=== PATIENT | female | born 1985 | race Hispanic/Latino ===

== ENCOUNTER 2024-11-26 10:04 | Emergency (ER) | payer SELFPAY ==
[~2024-11-26] VITALS: Ht 154.9 cm; Wt 64.9 kg
[~2024-11-26 10:04] MED LIST: AMOX1TAB16 PO; FERS325 PO; IBUP-2077 PO; POLY17PO4 PO
[2024-11-26 10:53] LABS: BASOPHILS # (AUTO) 0.14 K/uL (0.00-0.20); BASOPHILS % (AUTO) 1.4 % (0.0-5.0); HEMATOCRIT 40.5 % (36-48); IMMATURE GRANULOCYTE ABSOLUTE 0.04 K/uL (0-1); LYMPHOCYTES # (AUTO) 2.2 K/uL (1.0-4.8); LYMPHOCYTES % (AUTO) 22.2 % (21.0-51.0); MEAN CORPUSCULAR HEMOGLOBIN 24.1 pg (27.0-33.0); MEAN CORPUSCULAR HGB CONC 29.4 g/dL (32.0-36.0); MONOCYTES # (AUTO) 0.7 K/uL (0.1-1.0); MONOCYTES % (AUTO) 6.5 % (3.0-13.0); NEUTROPHILS # (AUTO) 6.8 K/uL (1.8-7.7); NEUTROPHILS % (AUTO) 67.5 % (40.0-77.0); PLATELET COUNT (AUTO) 257 K/uL (130-400); RED BLOOD CELL COUNT(AUTO) 4.94 MIL/uL (4.00-5.50); WHITE BLOOD COUNT (AUTO) 10.1 K/uL (4.8-10.8)
[2024-11-26 11:18] LABS: CREATININE 0.8 mg/dL (0.5-1.0); POTASSIUM 4.1 mmol/L (3.5-5.1)
--- NOTE | 2024-11-26 14:41 | HMCIMG ---
US RENAL SONOGRAM HISTORY: Right renal pain COMPARISON: 11/05/2024 TECHNIQUE: Renal and bladder ultrasound study was performed. FINDINGS: The right kidney measures 11.4 x 6.4 x 4.9 cm. The left kidney measures 10.8 x 5.1 x 5.1 cm. No evidence of hydronephrosis is seen of either kidney. Both kidneys are seen. There is right staghorn renal calculus. Right-sided stent is seen. There is right renal cyst measuring 2.9 cm. Bladder is moderately distended. There is bladder stone measuring 2 cm. IMPRESSION: 1. No hydronephrosis is seen. There is right staghorn renal calculus with right ureteral stent. Right simple renal cyst is seen measuring 2.9 cm.
--- NOTE | 2024-11-26 15:05 | ERN ---
General Chief Complaint: Post-Op Problem Stated Complaint: INCISION SITE LEAKING, NEPH RT Time Seen by MD: 10:08 Source: patient History of Present Illness Initial Comments Patient is a 39-year-old female coming in to be evaluated for right flank disc omfort. Per patient she had a nephrostomy tube placed secondary to kidney stones. She states he believes that the nephrostomy tube came out. Patient has not followed up with her urologist yet. Allergies: Coded Allergies: No Known Drug Allergies (Unverified Allergy, Unknown, 11/05/24) Home Meds Active Scripts Amoxicillin/Potassium Clav (Amox Tr-K Clv 875-125 mg Tab) 875 Mg-125 Mg Tablet, 1 TAB PO BID for 14 Days, #28 TAB 0 Refills Prov:TRISHA RUDOLPH MD 11/12/24 Reported Medications Polyethylene Glycol 3350 (Miralax) 17 Gram Powd.pack, 1 PACKET PO DAILY for constipation for 2 Days, #2 PACKET 0 Refills dissolve in water 11/06/24 Ibuprofen (Ibuprofen 800 mg Tab) 800 Mg Tab, 1 TAB PO TIDP PRN for pain 11/06/24 Ferrous Sulfate (Ferrous Sulfate) 325 Mg (65 Mg Iron) Ectab, 1 TAB PO BID 11/06/24 Past Medical History Past Medical History: Kidney Infection, Kidney Stone Past Surgical History: Female( History) LMP: Nov 10, 2024 ROS Dictation CONSTITUTIONAL: No chills, no fever, no weakness, no diaphoresis, no malaise. HEAD/FACE: No signs of trauma. EENT: No eye pain, no blurred vision, no tearing, no double vision, no ear pain, no ear discharge, no nose pain, no nasal congestion, no throat pain, no throat swelling, no mouth pain. RESPIRATORY: No cough, no orthopnea, no SOB, no stridor, no wheezing. CARDIOVASCULAR: No chest pain, no edema, no palpitations, no syncope. GASTROINTESTINAL/ABDOMINAL: No abdominal pain, no constipation, no diarrhea, no nausea, no vomiting. GENITOURINARY: No abnormal discharge, no dysuria, no frequent urination, no hematuria. No complaints of pain in the genitals. MUSCULOSKELETAL: No back pain, no gout, no joint pain, no joint swelling, no muscle pain, no muscle stiffness, no neck pain. INTEGUMENTARY: No change in color, no change in hair/nails, no dryness, no lesion, no lumps, no rash. NEUROLOGICAL/PSYCH: No anxiety, not depressed, no emotional problem, no headache, no numbness, no pre-existing deficit, no history of seizures, no tremors, no weakness. HEMATOLOGIC/LYMPHATIC: Not anemic, no history of blood clots, no apparent bleeding, no bruising, glands not swollen. All Systems Negative, Except as Noted. Physical Exam Physical Exam Dictation VITAL SIGNS: Reviewed. GENERAL APPEARANCE: Alert, oriented x3, no acute distress, obese. HEAD AND FACE: Non-traumatic. EYES: PERRL, pink conjunctivas, eyelid no trauma, anterior chamber clear. EARS: Pinnas intact and no signs of trauma or erythema. Ear canals clear and no discharge. TMs no erythema. NOSE: No discharge, no bleeding. OROPHARYNX: Mouth normal, teeth no caries, tongue pink. Pharynx clear, no erythema. Tonsils no exudates, no abscesses noted. Mucous membrane moist. NECK: Supple, non-tender, no thyromegaly, no masses, no JVD, no bruits. BREAST: Deferred. CHEST: No tenderness, no crepitus, no paradoxical movement, no retractions. LUNGS: Clear, well-ventilated, symmetric, no rales, no wheezing, no rhonchi, no stridor, good breath sounds bilaterally. HEART: Regular rate, regular rhythm, no murmur, no gallops. VASCULAR: No peripheral edema. ABDOMEN: Soft, positive bowel sounds, nondistended, no guarding, nontender, no rebound, no masses no hepatomegaly, no splenomegaly, no Gee's sign, no hernias. Nephrology tube in place right-sided RECTAL: Deferred. GENITAL: Deferred. NEUROLOGICAL: Normal speech, gross motor function intact, gross sensory function intact. MUSCULOSKELETAL: Neck nontender, full range of motion, back nontender, full range of motion. EXTREMITIES: Nontender, full range of motion. SKIN: Color pink, dry, no turgor, no rash, no lacerations, no abrasions, no contusions. LYMPHATICS: Deferred. Results Laboratory and Microbiology Lab and Micro Result Laboratory Tests Test 11/26/24 10:37 White Blood Count 10.1 K/uL (4.8-10.8) Red Blood Count 4.94 MIL/uL (4.00-5.50) Hemoglobin 11.9 g/dL (12.0-16.0) L Hematocrit 40.5 % (36-48) Mean Corpuscular Volume 82.0 fL (79-99) Mean Corpuscular Hemoglobin 24.1 pg (27.0-33.0) L Mean Corpuscular Hemoglobin Concent 29.4 g/dL (32.0-36.0) L Red Cell Distribution Width % (11.0-15.5) Platelet Count 257 K/uL (130-400) Mean Platelet Volume 9.4 fL (7.5-10.5) Immature Granulocyte % (Auto) 0.4 % (0-1) Neutrophils (%) (Auto) 67.5 % (40.0-77.0) Lymphocytes (%) (Auto) 22.2 % (21.0-51.0) Monocytes (%) (Auto) 6.5 % (3.0-13.0) Eosinophils (%) (Auto) 2.0 % (0.0-8.0) Basophils (%) (Auto) 1.4 % (0.0-5.0) Neutrophils # (Auto) 6.8 K/uL (1.8-7.7) Lymphocytes # (Auto) 2.2 K/uL (1.0-4.8) Monocytes # (Auto) 0.7 K/uL (0.1-1.0) Eosinophils # (Auto) 0.20 K/uL (0.00-0.70) Basophils # (Auto) 0.14 K/uL (0.00-0.20) Absolute Immature Granulocyte (auto 0.04 K/uL (0-1) Nucleated Red Blood Cells 0.0 % (0.0-0.19) Red Blood Cell Morphology See comments Sodium Level 136 mmol/L (136-145) Potassium Level 4.1 mmol/L (3.5-5.1) Chloride Level 102 mmol/L (101-111) Carbon Dioxide Level 29 mmol/L (21-32) Blood Urea Nitrogen 12 mg/dL (7-18) Creatinine 0.8 mg/dL (0.5-1.0) Glomerular Filtration Rate Calc 97 mL/min (>90) Random Glucose 95 mg/dL (70-105) Total Calcium 9.1 mg/dL (8.5-10.1) Labs Reviewed?: Yes EKG/XRAY/US/CT/MRI Ultrasound Comment [address] [place] [address] IMAGING REPORT Signed PATIENT: ORTIZ FOWLER MR#: [id number] : 1985 SEX: F AGE: 39 LOCATION: [facility] ORDER 1333 STATUS: REG ER REPORT#: [id number] SERVICE 1332 REASON: right renal pain ORDERING PHYSICIAN: ANA MARIA ARCE MD PROCEDURE: RENAL - US RENAL SONOGRAM US RENAL SONOGRAM HISTORY: Right renal pain COMPARISON: 11/05/2024 TECHNIQUE: Renal and bladder ultrasound study was performed. FINDINGS: The right kidney measures 11.4 x 6.4 x 4.9 cm. The left kidney measures 10.8 x 5.1 x 5.1 cm. No evidence of hydronephrosis is seen of either kidney. Both kidneys are seen. There is right staghorn renal calculus. Right-sided stent is seen. There is right renal cyst measuring 2.9 cm. Bladder is moderately distended. There is bladder stone measuring 2 cm. IMPRESSION: 1. No hydronephrosis is seen. There is right staghorn renal calculus with right ureteral stent. Right simple renal cyst is seen measuring 2.9 cm. DICTATED BY: ERYN GARCIA MD DATE: 11/26/24 1436 ELECTRONICALLY SIGNED BY: ERYN GARCIA MD DATE: 11/26/24 1441 MDM MDM: Differential diagnosis: Nephrostomy evaluation, discomfort Patient is a 39-year-old female coming in to be evaluated for right nephrostomy tube. Per patient she believes that the nephrostomy tube isn't working. Ultrasound was performed showed nephrostomy tube in place. Patient will be discharged in stable condition I did advised her appropriate follow up with the urologist in 1-2 days. ED Course Orders Procedure Category Date Status Time Cbc With Differential LAB 11/26/24 Complete 10:26 Basic Metabolic Panel LAB 11/26/24 Complete 10:26 Urinalysis LAB 11/26/24 Logged W/Microscopic 10:26 Us Renal Sonogram US 11/26/24 Resulted 13:32 Vital Signs Date Time Temp Pulse Resp B/P (MAP) Pulse Ox O2 Delivery O2 Flow Rate FiO2 11/26/24 14:30 98.2 80 16 118/74 99 Room Air* 0 21 11/26/24 13:06 80 16 99 Room Air* 0 21 11/26/24 11:53 78 16 118/74 99 Room Air* 0 21 11/26/24 10:50 98.2 80 16 116/70 98 Room Air* 0 21 11/26/24 10:06 97.9 85 16 120/83 99 Room Air 0 DX & DISP Disposition: Discharge Departure Impression: Primary Impression: H/O insertion of nephrostomy tube Condition: Stable Additional Instructions: FOLLOW-UP WITH PRIMARY CARE PROVIDER IN 1 TO 2 DAYS. TAKE MEDICATIONS DIRECTED HERE IN THE EMERGENCY ROOM. OKAY TO CONTINUE HOME MEDICATIONS UNLESS OTHERWISE DISCUSSED DURING YOUR VISIT IN THE EMERGENCY ROOM TODAY. RETURN TO YOUR NEAREST EMERGENCY ROOM IF SYMPTOMS WORSEN OR IF THERE IS NO IMPROVEMENT. CALL 911 IF YOU NEED IMMEDIATE ASSISTANCE. TAKE TYLENOL [id number] NEEDED AND IF NO CONTRAINDICATIONS ARE PRESENT. INCREASE ORAL HYDRATION. A WOUND CULTURE OR URINE CULTURE WAS ORDERED HERE IN THE EMERGENCY ROOM DEPARTMENT PLEASE FOLLOW-UP WITH PRIMARY CARE PROVIDER AND ADVISE THEM TO GET REPEAT PORTS FROM OUR FACILITY. IF YOU HAD ANY ROXIE WRAP/SPLINTS THAT WERE APPLIED HERE, PLEASE DO NOT REMOVE THEM UNTIL YOU SEE YOUR PRIMARY CARE OR SPECIALTY. Referrals: Referrals: NONE (PCP) RUBIO BRAVO MD Time of Disposition: 15:04 ANA MARIA ARCE MD Nov 26, 2024 15:05
[2024-11-26 15:11] LABS: APPEARANCE,URINE CLOUDY (CLEAR); BILIRUBIN,URINE NEGATIVE (NEGATIVE); COLOR,URINE LIGHT-YELLOW (YELLOW); GLUCOSE, URINE (UA) NEGATIVE (NEGATIVE); KETONES,URINE NEGATIVE (NEGATIVE); LEUKOCYTE ESTERASE ,URINE 500 Leu/uL (NEGATIVE); NITRATE,URINE NEGATIVE (NEGATIVE); OCCULT BLOOD,URINE SMALL (NEGATIVE); PROTEIN,URINE 20 mg/dL (NEGATIVE); UROBILINOGEN,URINE 0.2 mg/dL (0.2-1.0)
[2024-11-26 15:15] LABS: BACTERIA,URINE RARE /HPF (None Seen); MUCUS,URINE RARE LPF (None Seen); NON-SQUAMOUS EPITHELIAL CELL 1 /HPF (0-2); SQUAMOUS EPITHELIAL CELL,UR RARE /HPF (0-2); UNCLASSIFIED CRYSTAL 5 /HPF (None Seen); WBC CLUMP FEW /HPF (0-1); WBC,URINE 26-50 /HPF (0-1); YEAST,URINE BUDDING MOD /HPF (None Seen)
[2024-11-26 15:25] VITALS: BP 114/70; PULSE 80; RESP 16; TEMP 98.2; O2SAT 99
== END 2024-11-26 15:25 | disposition home or self-care (01) ==
LOC: EDH 10:04
DX: Z43.6 Encounter for attention to other artificial openings of urinary tract (principal); Z79.899 Other long term (current) drug therapy; Z98.890 Other specified postprocedural states
CPT/HCPCS: 36415; 76770; 80048; 81001; 85025; 87086; 87186; 99285

== ENCOUNTER 2024-11-28 18:35 | Inpatient (IN) | payer SELFPAY ==
[~2024-11-28] VITALS: Ht 152.4 cm; Wt 65.7 kg
--- NOTE | 2024-11-28 19:29 | ERN ---
ED Note History of Present Illness Stated Complaint: ABD PAIN Chief Complaint: Post-Op Problem Time Seen by MD: 18:37 Time Seen by Midlevel: 18:37 Dictation: The patient is a 39-year-old female with a history of kidney stones, status post nephrostomy tube on October 26, abscess drained November 08 who presents to the emergency department with complaints of right upper quadrant radiating to the back onset Thursday. Patient denies any nausea or vomiting, diarrhea or fevers. Reports last bowel movement today . Allergies: Coded Allergies: No Known Drug Allergies (Unverified Allergy, Unknown, 11/05/24) Home Meds Active Scripts Amoxicillin/Potassium Clav (Amox Tr-K Clv 875-125 mg Tab) 875 Mg-125 Mg Tablet, 1 TAB PO BID for 14 Days, #28 TAB 0 Refills Prov:TRISHA RUDOLPH MD 11/12/24 Reported Medications Polyethylene Glycol 3350 (Miralax) 17 Gram Powd.pack, 1 PACKET PO DAILY for constipation for 2 Days, #2 PACKET 0 Refills dissolve in water 11/06/24 Ibuprofen (Ibuprofen 800 mg Tab) 800 Mg Tab, 1 TAB PO TIDP PRN for pain 11/06/24 Ferrous Sulfate (Ferrous Sulfate) 325 Mg (65 Mg Iron) Ectab, 1 TAB PO BID 11/06/24 Past Medical History Past Medical History: Kidney Infection, Kidney Stone Surgical History: LMP: Nov 10, 2024 RN Note Reviewed/Agreed w/PFSH: Yes Review of System Dictation Constitutional: Negative for fever,chills, and weight loss Eyes: Negative for injury, pain,redness, and discharge ENT: Negative for injury,pain or swelling Cardiovascular: Negative for chest pain, palpitations, and edema Respiratory: Negative for shortness of breath, cough, and wheezing, Abdomen/GI: Negative for nausea, vomiting, diarrhea, and constipation positive for abdominal pain Back: Negative for injury and pain : Negative for injury, bleeding and discharge MS/Extremity: Negative for injury and deformity Skin: Negative for rash, and discoloration Neuro: Negative for headache, weakness, numbness, tingling, and seizure Psych: Negative for suicide ideation, homicidal ideation, and hallucinations Initial Vital Sign VS Vital Signs Date Time Temp Pulse Resp B/P (MAP) Pulse Ox O2 Delivery O2 Flow Rate FiO2 11/28/24 18:37 98.1 102 16 108/70 99 Room Air 0 11/28/24 20:17 21 Physical Exam Dictation Vital Signs reviewed General Appearance: Alert, oriented x 3, no acute distress, well developed, nourished. Head and Face: non-traumatic. Eyes: PERRL, pink conjunctivas, eyelid no trauma, anterior chamber with arcus senilis. Ears: Pinnas intact and no signs of trauma or erythema ear canals clear and no discharge TM no erythema Nose: No discharge, no bleeding. Oropharynx: Mouth normal, tongue pink. pharynx clear,no erythema, tonsils no exudates, no abscesses noted, mucous membrane moist Neck: Supple, non-tender, no thyromegaly, no masses, no JVD, no bruits Breast:Deferred Chest:No tenderness, no crepitus, no paradoxical movement, no retractions Lungs:Clear, well-ventilated, symmetric, no rales, no wheezing, no rhonchi, no stridor, good breath sounds bilaterally Heart: Regular rate, regular rhythm, no murmur, no gallops Vascular: no peripheral edema, Abdomen: Soft, positive bowel sounds, nondistended, no guarding, Generalized tenderness no rebound, no masses no hepatomegaly, no splenomegaly, no Gee's sign, no hernias. Rectal: Deferred Genital: Deferred Neurological: Normal speech, motor function intact, sensory function intact Musculoskeletal: Neck nontender, full range of motion, back nontender, full range of motion, Extremities: nontender, full range of motion Skin: Color pink, dry, no turgor, no rash, no lacerations, no abrasions, no contusions. Two drains to right upper abdomen and back, no abnormal drainage from drainage site, no erythema Lymphatic: Deferred Results (Laboratory/Radiology) Laboratory/Radiology Laboratory Tests Test 11/28/24 19:31 11/28/24 20:12 White Blood Count 9.7 K/uL (4.8-10.8) Red Blood Count 4.66 MIL/uL (4.00-5.50) Hemoglobin 11.4 g/dL (12.0-16.0) L Hematocrit 38.1 % (36-48) Mean Corpuscular Volume 81.8 fL (79-99) Mean Corpuscular Hemoglobin 24.5 pg (27.0-33.0) L Mean Corpuscular Hemoglobin Concent 29.9 g/dL (32.0-36.0) L Red Cell Distribution Width % (11.0-15.5) Platelet Count 256 K/uL (130-400) Mean Platelet Volume 9.3 fL (7.5-10.5) Immature Granulocyte % (Auto) 0.3 % (0-1) Neutrophils (%) (Auto) 67.3 % (40.0-77.0) Lymphocytes (%) (Auto) 22.0 % (21.0-51.0) Monocytes (%) (Auto) 7.2 % (3.0-13.0) Eosinophils (%) (Auto) 2.1 % (0.0-8.0) Basophils (%) (Auto) 1.1 % (0.0-5.0) Neutrophils # (Auto) 6.5 K/uL (1.8-7.7) Lymphocytes # (Auto) 2.1 K/uL (1.0-4.8) Monocytes # (Auto) 0.7 K/uL (0.1-1.0) Eosinophils # (Auto) 0.20 K/uL (0.00-0.70) Basophils # (Auto) 0.11 K/uL (0.00-0.20) Absolute Immature Granulocyte (auto 0.03 K/uL (0-1) Nucleated Red Blood Cells 0.0 % (0.0-0.19) Sodium Level 135 mmol/L (136-145) L Potassium Level 4.0 mmol/L (3.5-5.1) Chloride Level 101 mmol/L (101-111) Carbon Dioxide Level 32 mmol/L (21-32) Blood Urea Nitrogen 17 mg/dL (7-18) Creatinine 1.0 mg/dL (0.5-1.0) Glomerular Filtration Rate Calc 74 mL/min (>90) Random Glucose 92 mg/dL (70-105) Total Calcium 8.6 mg/dL (8.5-10.1) Total Bilirubin 0.2 mg/dL (0.2-1.0) Direct Bilirubin 0.1 mg/dL (0.0-0.3) Aspartate Amino Transf (AST/SGOT) 22 U/L (10-37) Alanine Aminotransferase (ALT/SGPT) 22 U/L (12-78) Alkaline Phosphatase 178 U/L (50-136) H Total Protein 9.7 g/dL (6.0-8.3) H Albumin 2.9 g/dL (3.5-5.0) L Lipase 30 U/L (16-77) Serum Test, Qualitative NEGATIVE (NEGATIVE) Urine Color YELLOW (YELLOW) Urine Appearance TURBID (CLEAR) Urine pH 6.0 (5.0-8.0) Urine Specific [place] 1.030 (1.001-1.031) Urine Protein 70 mg/dL (NEGATIVE) H Urine Glucose (UA) NEGATIVE mg/dL (NEGATIVE) Urine Ketones NEGATIVE mg/dL (NEGATIVE) Urine Occult Blood MODERATE (NEGATIVE) H Urine Nitrate NEGATIVE (NEGATIVE) Urine Bilirubin NEGATIVE mg/dL (NEGATIVE) Urine Urobilinogen 2.0 mg/dL (0.2-1.0) H Urine Leukocyte Esterase 500 Lin/uL (NEGATIVE) H Urine RBC 51-100 /HPF (0-1) H Urine WBC >100 /HPF (0-1) H Urine WBC Clumps (Auto) FEW /HPF (0-1) Urine Squamous Epithelial Cells RARE /HPF (0-2) Urine Other Crystals (Auto) 20 /HPF (None Seen) Urine Bacteria RARE /HPF (None Seen) Urine Yeast FEW /HPF (None Seen) REASON: right upper abd pain, right flank pain s/o nephrostomy ORDERING PHYSICIAN: DAVI COLES PROCEDURE: ABD PEL W - CT ABDOMEN/PELVIS W/CONTRAST Exam Type: CT ABDOMEN/PELVIS W/CONTRAST Clinical Information: right upper abd pain, right flank pain s/o nephrostomy Comparison: None Contrast: 100 cc's Isovue 370 IV, no complications or adverse reactions CT Dose Index (CTDI): 31.60 mGy Dose Length Product (DLP): 1740.80 total mGy-cm Findings: Left kidney is unremarkable. The right kidney shows chronic hydronephrosis with a internal double-J catheter in place as well as right renal collecting system calculus. The hydronephrosis appears chronic with perirenal stranding and significant loss of renal cortical thickness as well as severe decrease in renal excretion of contrast material. The lung bases are clear. The stomach is unremarkable. It shows no wall thickening. No gross ulceration is seen. It is not overly distended. There are no surrounding inflammatory changes. No wall lesions are identified to suggest cancer. The spleen is unremarkable. It is not enlarged. The pancreas shows normal anatomy. It is not fatty replaced. It shows no lesions. The pancreatic duct is not dilated. The gallbladder is unremarkable. It shows no cholelithiasis. The gallbladder wall is normal in thickness. There is no pericholecystic fluid. The is no acute or chronic inflammation noted. The adrenal glands are unremarkable. There is no enlargement. No lesions are noted. The liver is unremarkable. It shows no focal masses. The appendix is unremarkable. It shows no evidence of inflammation. No appendicolith is seen. The small bowel is unremarkable. There is no evidence of dilatation to suggest obstruction. No evidence of adynamic ileus is seen. There is no small bowel wall thickening to suggest enteritis. The colon is unremarkable. Left sided urinary bladder calculus is seen, ovoid in shape, measuring 25 mm. The other pelvic structures are unremarkable. The bony and vascular structures are unremarkable for the patient's age. Anterior perirenal fluid collection is seen with drainage catheter in place. IMPRESSION: Left kidney is unremarkable. The right kidney shows chronic hydronephrosis with a internal double-J catheter in place as well as right renal collecting system calculus. The hydronephrosis appears chronic with perirenal stranding and significant loss of renal cortical thickness as well as severe decrease in renal excretion of contrast material. Urinary bladder calculus. This study was performed using dose reduction techniques to include automated exposure control and/or adjustment of the mA and/or kV according to patient size. Labs Reviewed?: Yes ED Course ED Course Orders Procedure Category Date Status Time Cbc With Differential LAB 11/28/24 Complete 18:51 Urinalysis Profile LAB 11/28/24 Complete 18:51 0.9%Nacl 1000ml (Ns PHA 11/28/24 Complete 1000ml) 19:00 Lipase LAB 11/28/24 Complete 18:51 Basic Metabolic Panel LAB 11/28/24 Complete 18:51 Hepatic Function Panel LAB 11/28/24 Complete 18:51 Testing, LAB 11/28/24 Complete Serum Hcg 18:51 Morphine 4mg Syg PHA 11/28/24 Complete (Morphine 4mg Syg) 19:00 Ondansetron 4mg Inj PHA 11/28/24 Complete (Zofran 4mg Inj) 19:00 Ct Abdomen/Pelvis CT 11/28/24 Resulted W/Contrast 19:54 Iohexol (Omnipaque) PHA 11/28/24 Complete 20:22 Ceftriaxone 1g Vial PHA 11/28/24 Complete (Rocephine 1g Inj) 21:30 Current Medications Medications (Trade) Dose Ordered Sig/Karen Route PRN Reason Start Time Stop Time Status Last Admin Dose Admin Ceftriaxone Sodium (ROCEphine 1G INJ) 1 gm ONCE ONCE IVPB 11/28/24 21:30 11/28/24 21:31 DC Iohexol (Omnipaque) 75 ml STK-MED ONCE IV 11/28/24 20:22 11/28/24 20:22 DC Morphine Sulfate (morPHINE 4MG SYG) 4 mg ONCE ONCE IVP 11/28/24 19:00 11/28/24 19:01 DC 11/28/24 20:15 Ondansetron HCl (zoFRAN 4MG INJ) 4 mg ONCE ONCE IVP 11/28/24 19:00 11/28/24 19:01 DC 11/28/24 20:15 Sodium Chloride 1,000 ml @ 0 mls/hr ONCE ONCE IV 11/28/24 19:00 11/28/24 19:01 DC 11/28/24 20:15 Vital Signs Date Time Temp Pulse Resp B/P (MAP) Pulse Ox O2 Delivery O2 Flow Rate FiO2 11/28/24 20:17 98.4 101 18 104/68 98 Room Air* 0 21 11/28/24 18:37 98.1 102 16 108/70 99 Room Air 0 Medical Decision Making MDM MDM: The patient is a 39-year-old female with a history of kidney stones, status post nephrostomy tube on October 26, abscess drained November 08 who presents to the emergency department with complaints of right upper quadrant radiating to the back onset Thursday. Patient denies any nausea or vomiting, diarrhea or fevers. Reports last bowel movement today . CBC showed no leukocytosis, mild normocytic anemia, chemistry showed mild hyponatremia, negative liver enzymes, negative lipase, urinalysis positive for leukocyte esterase. CT abdomen pelvis showed a right kidney shows chronic hydronephrosis with internal double-J catheter in place. Urinary bladder calculus. Patient will be started on antibiotics and admitted for urology evaluation. Patient reports that her nephrostomy bag has not been draining appropriately. Differential diagnosis: Nephrostomy tube malfunction, sepsis, electrolyte imbalance, dehydration, UTI postoperative pain Comorbidities: Kidney stones Tests considered and not ordered secondary to shared decision making include: none Previous outside records reviewed: none Risk of complication and/or morbidity or mortality of patient management: The patient meets criteria for admission. Need for emergency major/minor surgery: No There are no social concerns with this patient. I independently interpreted the tests I ordered (labs, urinalysis, etc.). I discussed the case with the hospitalist for admission. Syeda DIAZ who accepts admission I discussed the case with the following specialists: none. Historian: pateint. I independently interpreted imaging studies and EKGs that I ordered (US, CT, XR, EKG, etc.). External chart review: none. Medical management and examination interpretation discussions were had by me with other qualified healthcare professionals as indicated for the patient's care. DX & DISP Disposition: Inpatient Decision to Admit Date: Nov 28, 2024 Decision to Admit Time: 22:05 Departure Impression: Primary Impression: Right flank pain Additional Impressions: History of nephrostomy, UTI (urinary tract infection) Condition: Stable Referrals: SELF,REFERRAL (PCP) I have reviewed the case, and I agree with, Diagnosis and Plan DAVI COLES Nov 28, 2024 19:29
[2024-11-28 19:37] LABS: BASOPHILS # (AUTO) 0.11 K/uL (0.00-0.20); BASOPHILS % (AUTO) 1.1 % (0.0-5.0); EOSINOPHILS % (AUTO) 2.1 % (0.0-8.0); HEMATOCRIT 38.1 % (36-48); IMMATURE GRANULOCYTE ABSOLUTE 0.03 K/uL (0-1); LYMPHOCYTES # (AUTO) 2.1 K/uL (1.0-4.8); MEAN CORPUSCULAR HEMOGLOBIN 24.5 pg (27.0-33.0); MEAN CORPUSCULAR HGB CONC 29.9 g/dL (32.0-36.0); MEAN CORPUSCULAR VOLUME 81.8 fL (79-99); MONOCYTES # (AUTO) 0.7 K/uL (0.1-1.0); MONOCYTES % (AUTO) 7.2 % (3.0-13.0); NEUTROPHILS # (AUTO) 6.5 K/uL (1.8-7.7); NEUTROPHILS % (AUTO) 67.3 % (40.0-77.0); PLATELET COUNT (AUTO) 256 K/uL (130-400); RED BLOOD CELL COUNT(AUTO) 4.66 MIL/uL (4.00-5.50); WHITE BLOOD COUNT (AUTO) 9.7 K/uL (4.8-10.8)
[2024-11-28 19:49] LABS: ALBUMIN 2.9 g/dL (3.5-5.0); BILIRUBIN,DIRECT 0.1 mg/dL (0.0-0.3); BILIRUBIN,TOTAL 0.2 mg/dL (0.2-1.0); TOTAL PROTEIN, SERUM 9.7 g/dL (6.0-8.3)
[2024-11-28] MEDS: ondanSETRON 4MG INJ IVP ONE (20:15)
[2024-11-28] MEDS: 0.9%NACL 1000ML 1,000 ML IV ONE (20:15)
[2024-11-28] MEDS: morPHINE 4 MG SYG IVP ONE (20:15)
[2024-11-28] MEDS ORDERED: IOHEXOL-350 75 ML VIAL IV ONE (20:22)
[2024-11-28 20:27] LABS: APPEARANCE,URINE TURBID (CLEAR); BILIRUBIN,URINE NEGATIVE (NEGATIVE); COLOR,URINE YELLOW (YELLOW); GLUCOSE, URINE (UA) NEGATIVE (NEGATIVE); KETONES,URINE NEGATIVE (NEGATIVE); LEUKOCYTE ESTERASE ,URINE 500 Leu/uL (NEGATIVE); NITRATE,URINE NEGATIVE (NEGATIVE); OCCULT BLOOD,URINE MODERATE (NEGATIVE); PROTEIN,URINE 70 mg/dL (NEGATIVE)
[2024-11-28 20:28] LABS: ADD UA MICROSCOPIC YES
[2024-11-28 20:32] LABS: BACTERIA,URINE RARE /HPF (None Seen); MUCUS,URINE RARE LPF (None Seen); RBC,URINE 51-100 /HPF (0-1); SQUAMOUS EPITHELIAL CELL,UR RARE /HPF (0-2); UNCLASSIFIED CRYSTAL 20 /HPF (None Seen); WBC CLUMP FEW /HPF (0-1); WBC,URINE >100 /HPF (0-1); YEAST,URINE BUDDING FEW /HPF (None Seen)
--- NOTE | 2024-11-28 21:09 | HMCIMG ---
Exam Type: CT ABDOMEN/PELVIS W/CONTRAST Clinical Information: right upper abd pain, right flank pain s/o nephrostomy Comparison: None Contrast: 100 cc's Isovue 370 IV, no complications or adverse reactions CT Dose Index (CTDI): 31.60 mGy Dose Length Product (DLP): 1740.80 total mGy-cm Findings: Left kidney is unremarkable. The right kidney shows chronic hydronephrosis with a internal double-J catheter in place as well as right renal collecting system calculus. The hydronephrosis appears chronic with perirenal stranding and significant loss of renal cortical thickness as well as severe decrease in renal excretion of contrast material. The lung bases are clear. The stomach is unremarkable. It shows no wall thickening. No gross ulceration is seen. It is not overly distended. There are no surrounding inflammatory changes. No wall lesions are identified to suggest cancer. The spleen is unremarkable. It is not enlarged. The pancreas shows normal anatomy. It is not fatty replaced. It shows no lesions. The pancreatic duct is not dilated. The gallbladder is unremarkable. It shows no cholelithiasis. The gallbladder wall is normal in thickness. There is no pericholecystic fluid. The is no acute or chronic inflammation noted. The adrenal glands are unremarkable. There is no enlargement. No lesions are noted. The liver is unremarkable. It shows no focal masses. The appendix is unremarkable. It shows no evidence of inflammation. No appendicolith is seen. The small bowel is unremarkable. There is no evidence of dilatation to suggest obstruction. No evidence of adynamic ileus is seen. There is no small bowel wall thickening to suggest enteritis. The colon is unremarkable. Left sided urinary bladder calculus is seen, ovoid in shape, measuring 25 mm. The other pelvic structures are unremarkable. The bony and vascular structures are unremarkable for the patient's age. Anterior perirenal fluid collection is seen with drainage catheter in place. IMPRESSION: Left kidney is unremarkable. The right kidney shows chronic hydronephrosis with a internal double-J catheter in place as well as right renal collecting system calculus. The hydronephrosis appears chronic with perirenal stranding and significant loss of renal cortical thickness as well as severe decrease in renal excretion of contrast material. Urinary bladder calculus. This study was performed using dose reduction techniques to include automated exposure control and/or adjustment of the mA and/or kV according to patient size.
[2024-11-28] MEDS: cefTRIAXone 1G VIAL IVPB ONE (22:07)
[2024-11-28] MEDS ORDERED: acetaMINOPHEN 325 MG TAB PO PRN ×2 (22:30)
[2024-11-28] MEDS ORDERED: ondanSETRON 4MG INJ IV PRN (22:30)
--- NOTE | 2024-11-28 22:33 | HP ---
[facility] HISTORY AND PHYSICAL Date of Service: Nov 28, 2024 Time of Service: 22:33 PCP: Self-referral HISTORY OF PRESENT ILLNESS: This is a 39-year-old female with significant history of kidney stone (with a right nephrostomy tube placed on October 26 2024t [facility] and right percutaneous drain placed on 11/08/2024 in this facility by IR) who presents to the ED for complaints of intractable right flank pain.Patient reports her right nephrostomy tube has not been draining at all since she was admitted here and her Urologist and rounding MD's were aware if it and she had also a percutaneous drain for abscess that was placed by Interventional Radiologist on 11/08/2024 and it has been draining 30ml per day she said and patients also states she has been voiding normally everyday she said. Patient also reports she was recently seen in the ER on November 26, 2024 for similar com plaints and was sent home and advised to continue home antibiotic.Today patient came back due to severity of pain . Patient reports her last antibiotic taken was this morning she is on Augmentin 875mg bid po and she has 1 more day remaining she said. Patient seen and examined in the ER awake alert coherent and ambulatory. Patient appears comfortable. Patient denies fever, chills, chest pain, palpitation, shortness of breath and dysuria. Latest vital signs temperature 98.4, heart rate 101, blood pressure 104/68 saturation 98% on room air. Labs: Hemoglobin 11.4, hematocrit 38, platelet count 256. Sodium 135, alkaline phosphatase 178, total protein 9.7, albumin 2.9 serum test negative. Urinalysis consistent with urinary tract infection. CT abdomen and pelvis with contrast result revealed left kidney is unremarkable. Right kidney shows chronic hydronephrosis with an internal double-J catheter in place as well as right renal collecting system calculus. The hydronephrosis appears chronic with perirenal stranding and significant loss of renal cortical thickness as well as severe decrease in renal excretion of contrast material. Urinary bladder calculus. ER called and recommended to admit the patient. REVIEW OF SYSTEMS CONSTITUTIONAL: Denies fevers, chills, or night sweats. No unintentional weight loss reported. NEUROLOGICAL: Denies headache, amaurosis fugax, motor weakness, sensory deficit, vertigo/spinning sensation, gait abnormalities, or tremors. ENT: No hearing loss, otalgia, otorrhea, rhinitis, rhinorrhea, hoarseness, or sore throat. CARDIOVASCULAR: Denies any exertional angina, dyspnea on exertion, orthopnea, paroxysmal nocturnal dyspnea, palpitations, life-threatening arrhythmias, claudication. PULMONARY: Denies any shortness of breath, cough, phlegm/sputum, hemoptysis, pleuritic chest pain. SLEEP: Denies morning headaches, daytime somnolence or napping. Denies difficulty falling asleep, staying asleep, waking from sleep. Denies knowledge of snoring. GASTROINTESTINAL: Denies any type of dysphagia to either liquids or solids. Denies nausea, vomiting, pyrosis, early satiety, abdominal pain, diarrhea, constipation, or changes in stool consistency or caliber. Denies coffee-ground emesis, hematemesis, hematochezia, or melanotic stools. GENITOURINARY: Complain of right flank pain Denies frequency, urgency, nocturia, hematuria or incontinence (Storage/Irritative symptoms.) Low urinary stream, straining to void, urinary intermittency or hesitancy, splitting of the voiding stream, terminal dribbling. ENDOCRINOLOGIC: Denies polyuria, polydipsia, polyphagia or heat/cold intolerances. HEMATOLOGIC: Denies thrombophilia/previous clots, or coagulopathy/bleeding disorders. ONCOLOGIC: Denies personal history of malignancy. DERMATOLOGIC: Denies rashes or pruritus. PSYCHIATRIC: Denies any suicidal or homicidal ideation. Denies hallucinations. PAST MEDICAL HISTORY: [ kidney stone ] PAST SURGICAL HISTORY: [ with recent placement of right nephrostomy tube on 10/27/2024 and ureteral stent. Right percutaneous drain placement on 11/08/2024 ] PAST SOCIAL HISTORY: [ Patient lives with children. Patient denies alcohol tobacco and recreational drug use ] FAMILY HISTORY: [Noncontributory ] Coded Allergies: No Known Drug Allergies (Unverified Allergy, Unknown, 11/05/24) PHYSICAL EXAM GENERAL APPEARANCE: The patient is awake, alert, and oriented, in no acute cardiopulmonary distress. NEUROLOGICAL: Cranial nerves II-XII grossly intact. Motor is 5/5 in bilateral upper and lower extremities proximal to distal. No sensory deficits. HEENT: Face is symmetric. Pupils are equal and reactive. Extraocular movements are intact. NECK: Supple. No JVD. No thyromegaly. No submental, submandibular, pre- /postauricular, occipital or supraclavicular lymphadenopathy. CHEST: Normal chest expansion. No Telemetry. LUNGS: Absence of any rales, rhonchi or any wheezing. CARDIOVASCULAR: Regular. S1 and S2 normal. No appreciable rubs, murmurs or gallops. ABDOMEN: Soft, nontender, and nondistended. There is no rebound, voluntary guarding, or rigidity. : Deferred. Patient has right nephrostomy tube that is not draining. Patient also has right percutaneous drain for abscess EXTREMITIES: Non-edematous and not cyanotic. No clubbing. Good capillary refill. SKIN: No skin breakdown. Vital Sign (Last 24 Hours) 11/28/24 20:17 Temp 98.4 Pulse 101 Resp 18 B/P (MAP) 104/68 Pulse Ox 98 O2 Delivery Room Air* O2 Flow Rate 0 FiO2 21 LABS: Laboratory: Test 11/28/24 20:12 11/28/24 19:31 Range/Units Urine Color YELLOW YELLOW Urine Appearance TURBID CLEAR Urine pH 6.0 5.0-8.0 Urine Specific Bearden 1.030 1.001-1.031 Urine Protein 70 H NEGATIVE mg/dL Urine Glucose (UA) NEGATIVE NEGATIVE mg/dL Urine Ketones NEGATIVE NEGATIVE mg/dL Urine Occult Blood MODERATE H NEGATIVE Urine Nitrate NEGATIVE NEGATIVE Urine Bilirubin NEGATIVE NEGATIVE mg/dL Urine Urobilinogen 2.0 H 0.2-1.0 mg/dL Urine Leukocyte Esterase 500 H NEGATIVE Lin/uL Urine RBC 51-100 H 0-1 /HPF Urine WBC >100 H 0-1 /HPF Urine WBC Clumps (Auto) FEW 0-1 /HPF Urine Squamous Epithelial Cells RARE 0-2 /HPF Urine Other Crystals (Auto) 20 None Seen /HPF Urine Bacteria RARE None Seen /HPF Urine Yeast FEW None Seen /HPF White Blood Count 9.7 4.8-10.8 K/uL Red Blood Count 4.66 4.00-5.50 MIL/uL Hemoglobin 11.4 L 12.0-16.0 g/dL Hematocrit 38.1 36-48 % Mean Corpuscular Volume 81.8 79-99 fL Mean Corpuscular Hemoglobin 24.5 L 27.0-33.0 pg Mean Corpuscular Hemoglobin Concent 29.9 L 32.0-36.0 g/dL Red Cell Distribution Width 11.0-15.5 % Platelet Count 256 130-400 K/uL Mean Platelet Volume 9.3 7.5-10.5 fL Immature Granulocyte % (Auto) 0.3 0-1 % Neutrophils (%) (Auto) 67.3 40.0-77.0 % Lymphocytes (%) (Auto) 22.0 21.0-51.0 % Monocytes (%) (Auto) 7.2 3.0-13.0 % Eosinophils (%) (Auto) 2.1 0.0-8.0 % Basophils (%) (Auto) 1.1 0.0-5.0 % Neutrophils # (Auto) 6.5 1.8-7.7 K/uL Lymphocytes # (Auto) 2.1 1.0-4.8 K/uL Monocytes # (Auto) 0.7 0.1-1.0 K/uL Eosinophils # (Auto) 0.20 0.00-0.70 K/uL Basophils # (Auto) 0.11 0.00-0.20 K/uL Absolute Immature Granulocyte (auto 0.03 0-1 K/uL Nucleated Red Blood Cells 0.0 0.0-0.19 % Sodium Level 135 L 136-145 mmol/L Potassium Level 4.0 3.5-5.1 mmol/L Chloride Level 101 101-111 mmol/L Carbon Dioxide Level 32 21-32 mmol/L Blood Urea Nitrogen 17 7-18 mg/dL Creatinine 1.0 0.5-1.0 mg/dL Glomerular Filtration Rate Calc 74 >90 mL/min Random Glucose 92 70-105 mg/dL Total Calcium 8.6 8.5-10.1 mg/dL Total Bilirubin 0.2 0.2-1.0 mg/dL Direct Bilirubin 0.1 0.0-0.3 mg/dL Aspartate Amino Transf (AST/SGOT) 22 10-37 U/L Alanine Aminotransferase (ALT/SGPT) 22 12-78 U/L Alkaline Phosphatase 178 H 50-136 U/L Total Protein 9.7 H 6.0-8.3 g/dL Albumin 2.9 L 3.5-5.0 g/dL Lipase 30 16-77 U/L Serum Test, Qualitative NEGATIVE NEGATIVE DIAGNOSTICS / RADIOLOGY: [ ] ASSESSMENT: Intractable right flank pain POA Complicated urinary tract infection POA Urinary bladder calculus per CT POA Chronic right kidney hydronephrosis per CT POA Recent right percutaneous drain for abscess POA Recent right [place] [facility] [place]onat[place] POA Protein calorie malnutrition POA History of kidney stone POA PLAN: We will admit patient in medical surgical We will start on heart healthy diet We will start NS @ 75 ml / hr x2 bags and re evaluate We will start patient on Rocephin 1 g IV b.i.d. for empiric coverage We will start fluconazole 100 mg p.o. x1 We will start on Famotidine 20 mg IV bid for GI prophylaxis We will add prn medication for fever,pain,cough, nausea and vomiting We will reconcile home meds once medlist available We will seek Urology consultation We will request labs in am Further orders to follow depending on above results Case discussed with attending physician and came up with above treatment and plan of care. ADVANCED CARE PLANNING 1. Which of the following were discussed? Hospice Care - No Therapeutic options - Yes Advance Directives - No Other discussions - 2. Discussed with who? Patient 3. Voluntary nature of this service was explained to the patient? Yes 4. Amount of time spent - ___22____ 5. Reviewed by Physician? (if this service was performed by NPP) Yes Patient seen and examined by me. Agree with note by SEQUINS WINDER SEE ADDITIONAL ORDERS PER CHART DISCUSSED WITH NURSING STAFF ARAMIS CUBAP Nov 28, 2024 22:33
--- NOTE | 2024-11-28 22:36 | NUR ---
PER PATIENT SHE DOES NOT WANT TO BE CONSULTED BY DR. BRAVO
[2024-11-29] VITALS (8 sets, daily range): BP systolic 96–120; BP diastolic 54–74; PULSE 68–94; RESP 18–20; TEMP 97.7–98.5; O2SAT 98–100
[2024-11-29] MEDS: 0.9%NACL 1000ML 1,000 ML IV SCH (01:11)
--- NOTE | 2024-11-29 01:35 | NUR ---
ADMIT PT ADMITTED TO ROOM 308, AAOX4. DENIES OF ANY PAINS AT THIS TIME. AMBULATORY AND INDEPENDENT TO ADLS. ADMISSION CARE DONE. ADMISSION V/S MONITORED, STABLE. ADMISSION ASSESSMENT DONE, PLEASE REFER TO CHART. ADMISSION DATA BASE COMPLETED. CONTINUED IVF OF NS FROM ER REGULATED AT 75CC/HR. CALL LIGHT WITHIN REACH. ORIENTED TO ROOM AND UNIT. IN FOR MORE CARE AND MANAGEMENT. Addendum: 11/29/24 at 0211 by SHERRELL SAMANO RN RN Amended: Links added.
[2024-11-29] MEDS: fluCONazole 100 MG TAB PO ONE (01:40)
--- NOTE | 2024-11-29 05:05 | NUR ---
ROUNDS PT IS STILL ASLEEP WITH RESPIRATIONS EVEN AND UNLABORED. NO DISTRESS NOTED. KEPT UNDISTURBED FOR NOW. CALL LIGHT WITHIN REACH. FOR MORE CARE.
[2024-11-29 07:05] LABS: BASOPHILS # (AUTO) 0.12 K/uL (0.00-0.20); BASOPHILS % (AUTO) 1.3 % (0.0-5.0); EOSINOPHILS # (AUTO) 0.23 K/uL (0.00-0.70); EOSINOPHILS % (AUTO) 2.4 % (0.0-8.0); HEMATOCRIT 33.8 % (36-48); IMMATURE GRANULOCYTE ABSOLUTE 0.05 K/uL (0-1); LYMPHOCYTES % (AUTO) 21.3 % (21.0-51.0); MEAN CORPUSCULAR HGB CONC 29.3 g/dL (32.0-36.0); MEAN CORPUSCULAR VOLUME 81.8 fL (79-99); MONOCYTES # (AUTO) 0.9 K/uL (0.1-1.0); MONOCYTES % (AUTO) 9.1 % (3.0-13.0); NEUTROPHILS # (AUTO) 6.2 K/uL (1.8-7.7); NEUTROPHILS % (AUTO) 65.4 % (40.0-77.0); PLATELET COUNT (AUTO) 208 K/uL (130-400); RED BLOOD CELL COUNT(AUTO) 4.13 MIL/uL (4.00-5.50); WHITE BLOOD COUNT (AUTO) 9.4 K/uL (4.8-10.8)
[2024-11-29 07:16] LABS: INR 0.98 (0.85-1.15); PROTHROMBIN TIME 10.4 SEC (9.6-11.6)
[2024-11-29 07:17] LABS: PARTIAL THROMBOPLASTIN TIME 27.7 SEC (26.3-35.5)
[2024-11-29 07:29] LABS: ALBUMIN 2.3 g/dL (3.5-5.0); BILIRUBIN,TOTAL 0.2 mg/dL (0.2-1.0); CREATININE 0.8 mg/dL (0.5-1.0); MAGNESIUM 2.1 mg/dL (1.80-2.40); POTASSIUM 4.2 mmol/L (3.5-5.1)
[2024-11-29] MEDS: FAMOTIDINE 20MG VIAL IV SCH (09:24)
[2024-11-29] MEDS: cefTRIAXone 1G VIAL IV SCH (09:24)
--- NOTE | 2024-11-29 15:17 | PN ---
[facility] PROGRESS NOTE Date of Service: Nov 29, 2024 Time of Service: 15:12 SUBJECTIVE: This is a 39-year-old female with significant history of kidney stone (with a right nephrostomy tube placed on October 26 2024t [facility] and right percutaneous drain placed on 11/08/2024 in this facility by IR) who presented to the ED for complaints of intractable right flank pain. CT abdomen and pelvis with contrast result revealed left kidney is unremarkable. Right kidney shows chronic hydronephrosis with an internal double-J catheter in place as well as right renal collecting system calculus. The hydronephrosis appears chronic with perirenal stranding and significant loss of renal cortical thickness as well as severe decrease in renal excretion of contrast material. Urinary bladder calculus. During my visit the patient is comfortable, sitting in the chair, alert oriented x3, hemodynamically stable, getting IV fluids and IV antibiotics. REVIEW OF SYSTEMS CONSTITUTIONAL: Denies fevers, chills, or night sweats. No unintentional weight loss reported. NEUROLOGICAL: Denies headache, amaurosis fugax, motor weakness, sensory deficit, vertigo/spinning sensation, gait abnormalities, or tremors. ENT: No hearing loss, otalgia, otorrhea, rhinitis, rhinorrhea, hoarseness, or sore throat. CARDIOVASCULAR: Denies any exertional angina, dyspnea on exertion, orthopnea, paroxysmal nocturnal dyspnea, palpitations, life-threatening arrhythmias, claudication. PULMONARY: Denies any shortness of breath, cough, phlegm/sputum, hemoptysis, pleuritic chest pain. SLEEP: Denies morning headaches, daytime somnolence or napping. Denies difficulty falling asleep, staying asleep, waking from sleep. Denies knowledge of snoring. GASTROINTESTINAL: Denies any type of dysphagia to either liquids or solids. Denies nausea, vomiting, pyrosis, early satiety, abdominal pain, diarrhea, constipation, or changes in stool consistency or caliber. Denies coffee-ground emesis, hematemesis, hematochezia, or melanotic stools. GENITOURINARY: Complain of right flank pain Denies frequency, urgency, nocturia, hematuria or incontinence (Storage/Irritative symptoms.) Low urinary stream, straining to void, urinary intermittency or hesitancy, splitting of the voiding stream, terminal dribbling. ENDOCRINOLOGIC: Denies polyuria, polydipsia, polyphagia or heat/cold intolerances. HEMATOLOGIC: Denies thrombophilia/previous clots, or coagulopathy/bleeding disorders. ONCOLOGIC: Denies personal history of malignancy. DERMATOLOGIC: Denies rashes or pruritus. PSYCHIATRIC: Denies any suicidal or homicidal ideation. Denies hallucinations. PHYSICAL EXAM GENERAL APPEARANCE: The patient is awake, alert, and oriented, in no acute cardiopulmonary distress. NEUROLOGICAL: Cranial nerves II-XII grossly intact. Motor is 5/5 in bilateral upper and lower extremities proximal to distal. No sensory deficits. HEENT: Face is symmetric. Pupils are equal and reactive. Extraocular movements are intact. NECK: Supple. No JVD. No thyromegaly. No submental, submandibular, pre- /postauricular, occipital or supraclavicular lymphadenopathy. CHEST: Normal chest expansion. No Telemetry. LUNGS: Absence of any rales, rhonchi or any wheezing. CARDIOVASCULAR: Regular. S1 and S2 normal. No appreciable rubs, murmurs or gallops. ABDOMEN: Soft, nontender, and nondistended. There is no rebound, voluntary guarding, or rigidity. : Deferred. Patient has right nephrostomy tube that is not draining. P atient also has right percutaneous drain for abscess EXTREMITIES: Non-edematous and not cyanotic. No clubbing. Good capillary refill. SKIN: No skin breakdown. Vital Signs (last 8hr) Date Time Temp Pulse Resp B/P (MAP) Pulse Ox O2 Delivery O2 Flow Rate FiO2 11/29/24 10:54 100 Room Air* 0 21 11/29/24 08:00 98.4 68 18 98/64 100 Room Air LABS: Laboratory: Test 11/29/24 06:52 11/28/24 20:12 11/28/24 19:31 Range/Units White Blood Count 9.4 4.8-10.8 K/uL Red Blood Count 4.13 4.00-5.50 MIL/uL Hemoglobin 9.9 L 12.0-16.0 g/dL Hematocrit 33.8 L 36-48 % Mean Corpuscular Volume 81.8 79-99 fL Mean Corpuscular Hemoglobin 24.0 L 27.0-33.0 pg Mean Corpuscular Hemoglobin Concent 29.3 L 32.0-36.0 g/dL Red Cell Distribution Width 11.0-15.5 % Platelet Count 208 130-400 K/uL Mean Platelet Volume 9.7 7.5-10.5 fL Immature Granulocyte % (Auto) 0.5 0-1 % Neutrophils (%) (Auto) 65.4 40.0-77.0 % Lymphocytes (%) (Auto) 21.3 21.0-51.0 % Monocytes (%) (Auto) 9.1 3.0-13.0 % Eosinophils (%) (Auto) 2.4 0.0-8.0 % Basophils (%) (Auto) 1.3 0.0-5.0 % Neutrophils # (Auto) 6.2 1.8-7.7 K/uL Lymphocytes # (Auto) 2.0 1.0-4.8 K/uL Monocytes # (Auto) 0.9 0.1-1.0 K/uL Eosinophils # (Auto) 0.23 0.00-0.70 K/uL Basophils # (Auto) 0.12 0.00-0.20 K/uL Absolute Immature Granulocyte (auto 0.05 0-1 K/uL Nucleated Red Blood Cells 0.0 0.0-0.19 % Prothrombin Time 10.4 9.6-11.6 SEC Prothromb Time International Ratio 0.98 0.85-1.15 Activated Partial Thromboplast Time 27.7 26.3-35.5 SEC Sodium Level 139 136-145 mmol/L Potassium Level 4.2 3.5-5.1 mmol/L Chloride Level 107 101-111 mmol/L Carbon Dioxide Level 26 21-32 mmol/L Blood Urea Nitrogen 9 7-18 mg/dL Creatinine 0.8 0.5-1.0 mg/dL Glomerular Filtration Rate Calc 97 >90 mL/min Random Glucose 103 70-105 mg/dL Total Calcium 8.2 L 8.5-10.1 mg/dL Magnesium Level 2.10 1.80-2.40 mg/dL Total Bilirubin 0.2 0.2-1.0 mg/dL Aspartate Amino Transf (AST/SGOT) 22 10-37 U/L Alanine Aminotransferase (ALT/SGPT) 19 12-78 U/L Alkaline Phosphatase 142 H 50-136 U/L Total Protein 8.0 6.0-8.3 g/dL Albumin 2.3 #L 3.5-5.0 g/dL Urine Color YELLOW YELLOW Urine Appearance TURBID CLEAR Urine pH 6.0 5.0-8.0 Urine Specific Warren 1.030 1.001-1.031 Urine Protein 70 H NEGATIVE mg/dL Urine Glucose (UA) NEGATIVE NEGATIVE mg/dL Urine Ketones NEGATIVE NEGATIVE mg/dL Urine Occult Blood MODERATE H NEGATIVE Urine Nitrate NEGATIVE NEGATIVE Urine Bilirubin NEGATIVE NEGATIVE mg/dL Urine Urobilinogen 2.0 H 0.2-1.0 mg/dL Urine Leukocyte Esterase 500 H NEGATIVE Lin/uL Urine RBC 51-100 H 0-1 /HPF Urine WBC >100 H 0-1 /HPF Urine WBC Clumps (Auto) FEW 0-1 /HPF Urine Squamous Epithelial Cells RARE 0-2 /HPF Urine Other Crystals (Auto) 20 None Seen /HPF Urine Bacteria RARE None Seen /HPF Urine Yeast FEW None Seen /HPF Direct Bilirubin 0.1 0.0-0.3 mg/dL Lipase 30 16-77 U/L Serum Test, Qualitative NEGATIVE NEGATIVE Current Medications Medications (Trade) Dose Ordered Sig/Karen Route PRN Reason Start Time Stop Time Status Last Admin Dose Admin Acetaminophen (TYLenol 325MG TAB) 650 mg Q4H PRN PO MILD PAIN (1-3) 11/28/24 22:30 12/28/24 22:29 Acetaminophen (TYLenol 325MG TAB) 650 mg Q6H PRN PO TEMPERATURE GREATER THAN 101.5 11/28/24 22:30 12/28/24 22:29 Acetaminophen/ Hydrocodone Bitart (NORco 5/325MG) 1 tab Q4H PRN PO MODERATE PAIN (4-6) 11/28/24 22:30 12/03/24 22:29 Acetaminophen/ Hydrocodone Bitart (NORco 5/325MG) 2 tab Q4H PRN PO SEVERE PAIN (7-10) 11/28/24 22:30 12/03/24 22:29 Ceftriaxone Sodium (ROCEphine 1G INJ) 1 gm BID IV 11/29/24 09:00 12/09/24 08:59 11/29/24 09:24 1 GM Famotidine (Pepcid 20mg Vial) 20 mg BID IV 11/29/24 09:00 12/29/24 08:59 11/29/24 09:24 20 MG Ondansetron HCl (zoFRAN 4MG INJ) 4 mg Q6H PRN IV NAUSEA/VOMITING 11/28/24 22:30 12/28/24 22:29 Sodium Chloride 1,000 ml @ 75 mls/hr [id number] IV 11/28/24 22:30 12/28/24 22:29 11/29/24 09:23 75 MLS/HR DIAGNOSTICS / RADIOLOGY: [ ] ASSESSMENT: Intractable right flank pain POA Complicated urinary tract infection POA Urinary bladder calculus per CT POA Chronic right kidney hydronephrosis per CT POA Recent right percutaneous drain for abscess POA Recent right nephrostomy tube placement on October 26 [facility] [place] Mild hyponatremia POA Protein calorie malnutrition POA History of kidney stone POA PLAN: The patient remains admitted to the medical floor Continue supportive care with IV fluids, pain medication as well as broad- spectrum IV antibiotics, follow results of septic workup. Urology consultation requested, we will follow input and recommendations NEURO: Minimize central acting medications as possible. Fall Precautions. Well lighted room through the day and minimize interruptions through the night to prevent acute delirium. PULMONARY: Supplemental 02 as needed BiPAP as necessary, for respiratory distress Titrate Fio2 to keep Spo2 > or = 90% DuoNebs and CPT as needed IS hourly while awake for pulmonary hygiene prn Out of bed to chair as tolerated Maintain aspiration precautions at all times CARDIOVASCULAR: Follow hemodynamics. Vital signs per facility protocol GI & NUTRITION: Continue nutritional support Aspirations precautions Prokinetic agents and laxatives as needed KIDNEYS & ELECTROLYTES: Strict monitoring of intake and output Daily weights Avoid nephrotoxic agents Monitor electrolytes and replace as needed Goal urine output of 30mL/hr or 0.5mL/kg/hr Medications to be dosed according to renal function. Avoid contrast if possible ENDOCRINE: Maintain blood glucose between 100-180 at all times. Insulin sliding scale for blood glucose management Hypoglycemia and hyperglycemia protocol in place INFECTIOUS DISEASE: Trend temperature, WBC and procalcitonin level Follow cultures, deescalate antibiotics as soon as possible. Panculture if new onset fever HEMATOLOGY & COAGULATION: Monitor H&H. Keep Hgb > 7 Transfuse 1 unit of PRBC for Hgb < 7 Transfuse 1 pack of platelets of platelets < 20, 000 Watch for any signs and symptoms of bleeding SKIN: Pressure ulcer prevention per facility protocol Specialty mattress as needed ORTHO/REHAB Continue PT/OT PRN: MEDICATIONS Tylenol 650 mg po every 4 hrs for fever zofran 4 mg IV every 6 hrs for n/v Hydralazine 5 mg IV every 4 hrs systolic pressure > 160 bowel regiment: lactulose 20 gm PO BID PRN constipation Supportive measures: Continue GI and DVT prophylaxis Disposition: Pending improvement in clinical condition All questions answered time spent: > 35 min Case discussed with attending physician and came up with above treatment and plan of care. RICARDO YOUNG MD Nov 29, 2024 15:17
--- NOTE | 2024-11-29 16:12 | NUR ---
DCP Patient states lives alone with Michelle Teran, Daughter [phone] and three other children; in a apartment with a tub. States unemployed, stay at home mother, remains independent and drives self. Receives $864 in food assistance. States after surgery has required assistance with ADLs. Denies medical devices. Denies home health services, home care provider or dialysis. PCP - [facility] Available [facility]acy - [facility]. Upon discharge, Michelle Teran, Mihai [phone] and assist with care. Financial Counseling referred. Provided Community Resources List. MD BRUNSON -- status post nephrostomy bags x2 (10/26/2024 and 11/08/2024), returned due to abscess; notified CM, wound care reeducation; patient states Mihai [phone] helps with dressing changes Addendum: 11/29/24 at 1620 by ROSA POTTER RN CM Amended: Links added.
[2024-11-29] MEDS: HYDROcodone/APAP 5/325 1 TAB TABLET PO PRN (20:45)
--- NOTE | 2024-11-29 21:29 | CONS ---
CONSULTATION NOTE Date of Service: Nov 29, 2024 Reason for Consultation: Hospitalist Requesting Physician: XGP of the right kidney HISTORY OF PRESENT ILLNESS: 39-year-old female with significant history of kidney stone, underwent a placement of a indwelling ureteral stent on the right side some to three years ago but never followed up. Patient states that she did not have insurance and whenever she came to the hospital nobody was willing to perform a procedure on her to remove the stent. The stent was initially placed secondary to an obstructing right UPJ calculus. 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 Patient is dealing with flank pain and recurrent urinary tract infections. As recently as in October of 2024 patient presented to this facility with intractable right flank pain. CT scan did show an abscess cavity in the perirenal region. A drain was placed by Interventional Radiology. They also placed a nephrostomy tube. She continues to be symptomatic. Presented during this hospitalization for similar symptoms of right flank pain. A CT scan obtained during this admission does show left kidney is unremarkable. Right kidney shows chronic hydronephrosis with an internal double-J catheter in place as well as right renal collecting system calculus. The hydronephrosis appears chronic with perirenal stranding and significant loss of renal cortical thickness as well as severe decrease in renal excretion of contrast material. Urinary bladder calculus. She was admitted to the floor for supportive care with a urological consult. REVIEW OF SYSTEMS CONSTITUTIONAL: Denies fever, chills, or fatigue. HEAD/FACE: No signs of trauma. EENT: Denies eye pain, blurred vision, double vision, or light sensitivity. RESPIRATORY: Denies shortness of breath, cough, wheezing CARDIOVASCULAR: Denies chest pain, palpitation, syncope GASTROINTESTINAL/ABDOMINAL: Denies abdominal pain, constipation, diarrhea, nausea or vomiting GENITOURINARY: Denies dysuria or hematuria. Endorses right flank pain MUSCULOSKELETAL: Denies joint pain, tenderness, or trauma. INTEGUMENTARY: Denies rash or itchiness NEUROLOGICAL/PSYCH: Denies anxiety, depression, heat or cold intolerance. PAST MEDICAL HISTORY: Nephrolithiasis Right renal abscess PAST SURGICAL HISTORY: Cystoscopy with stent insertion two years ago Percutaneous nephrostomy tube placement October 2024 PAST SOCIAL HISTORY: Denies ethanol, denies drugs, denies smoking FAMILY HISTORY: Family history noncontributory to presenting complaint Coded Allergies: No Known Drug Allergies (Unverified Allergy, Unknown, 11/05/24) PHYSICAL EXAM EYES: Anicteric. Pupils equal and reactive. HENT: No oral thrush seen, moist Oral mucosa NECK: Supple, no JVD or thyromegaly. LUNGS: Good air entry. No rales, no rhonchi. CARDIOVASCULAR: S1, S2 regular. No murmur heard. ABDOMEN: Soft, non tender, bowel sounds present, no organomegaly CENTRAL NERVOUS SYSTEM: Awake, alert, oriented x 3. No focal deficits. SKIN: No rashes, no swelling. LYMPHATICS: No peripheral lymphadenopathy MUSCULOSKELETAL: No joint swelling, erythema or tenderness. EXTREMITIES: No cyanosis or clubbing BACK: No deformity, no pressure ulcer. There are two tubes emanating from the right flank, one is a nephrostomy tube and the other one is a drain from the abscess cavity GENITOURINARY: No dysuria or hematuria Vital Sign (Last 24 Hours) 11/29/24 11/29/24 10:54 21:12 Temp 98.1 Pulse 94 Resp 18 B/P (MAP) 103/54 Pulse Ox 98 O2 Delivery Room Air O2 Flow Rate 0 FiO2 21 Intake & Output (last 24hrs) 11/28/24 11/28/24 11/29/24 15:00 23:00 07:00 Intake Total 350.0 ml Balance 350.0 ml LABS: Laboratory: Test 11/29/24 06:52 11/28/24 20:12 11/28/24 19:31 Range/Units White Blood Count 9.4 4.8-10.8 K/uL Red Blood Count 4.13 4.00-5.50 MIL/uL Hemoglobin 9.9 L 12.0-16.0 g/dL Hematocrit 33.8 L 36-48 % Mean Corpuscular Volume 81.8 79-99 fL Mean Corpuscular Hemoglobin 24.0 L 27.0-33.0 pg Mean Corpuscular Hemoglobin Concent 29.3 L 32.0-36.0 g/dL Red Cell Distribution Width 11.0-15.5 % Platelet Count 208 130-400 K/uL Mean Platelet Volume 9.7 7.5-10.5 fL Immature Granulocyte % (Auto) 0.5 0-1 % Neutrophils (%) (Auto) 65.4 40.0-77.0 % Lymphocytes (%) (Auto) 21.3 21.0-51.0 % Monocytes (%) (Auto) 9.1 3.0-13.0 % Eosinophils (%) (Auto) 2.4 0.0-8.0 % Basophils (%) (Auto) 1.3 0.0-5.0 % Neutrophils # (Auto) 6.2 1.8-7.7 K/uL Lymphocytes # (Auto) 2.0 1.0-4.8 K/uL Monocytes # (Auto) 0.9 0.1-1.0 K/uL Eosinophils # (Auto) 0.23 0.00-0.70 K/uL Basophils # (Auto) 0.12 0.00-0.20 K/uL Absolute Immature Granulocyte (auto 0.05 0-1 K/uL Nucleated Red Blood Cells 0.0 0.0-0.19 % Prothrombin Time 10.4 9.6-11.6 SEC Prothromb Time International Ratio 0.98 0.85-1.15 Activated Partial Thromboplast Time 27.7 26.3-35.5 SEC Sodium Level 139 136-145 mmol/L Potassium Level 4.2 3.5-5.1 mmol/L Chloride Level 107 101-111 mmol/L Carbon Dioxide Level 26 21-32 mmol/L Blood Urea Nitrogen 9 7-18 mg/dL Creatinine 0.8 0.5-1.0 mg/dL Glomerular Filtration Rate Calc 97 >90 mL/min Random Glucose 103 70-105 mg/dL Total Calcium 8.2 L 8.5-10.1 mg/dL Magnesium Level 2.10 1.80-2.40 mg/dL Total Bilirubin 0.2 0.2-1.0 mg/dL Aspartate Amino Transf (AST/SGOT) 22 10-37 U/L Alanine Aminotransferase (ALT/SGPT) 19 12-78 U/L Alkaline Phosphatase 142 H 50-136 U/L Total Protein 8.0 6.0-8.3 g/dL Albumin 2.3 #L 3.5-5.0 g/dL Urine Color YELLOW YELLOW Urine Appearance TURBID CLEAR Urine pH 6.0 5.0-8.0 Urine Specific [place] 1.030 1.001-1.031 Urine Protein 70 H NEGATIVE mg/dL Urine Glucose (UA) NEGATIVE NEGATIVE mg/dL Urine Ketones NEGATIVE NEGATIVE mg/dL Urine Occult Blood MODERATE H NEGATIVE Urine Nitrate NEGATIVE NEGATIVE Urine Bilirubin NEGATIVE NEGATIVE mg/dL Urine Urobilinogen 2.0 H 0.2-1.0 mg/dL Urine Leukocyte Esterase 500 H NEGATIVE Lin/uL Urine RBC 51-100 H 0-1 /HPF Urine WBC >100 H 0-1 /HPF Urine WBC Clumps (Auto) FEW 0-1 /HPF Urine Squamous Epithelial Cells RARE 0-2 /HPF Urine Other Crystals (Auto) 20 None Seen /HPF Urine Bacteria RARE None Seen /HPF Urine Yeast FEW None Seen /HPF Direct Bilirubin 0.1 0.0-0.3 mg/dL Lipase 30 16-77 U/L Serum Test, Qualitative NEGATIVE NEGATIVE DIAGNOSTICS / RADIOLOGY: CT of the abdomen and pelvis with intravenous contrast asked narrated in the HPI ASSESSMENT: 39-year-old female with a history of nephrolithiasis lost to follow up with a an indwelling right ureteral stent now with the possibility of right XGP PLAN: 1. Before we make any decisions about how to manage this patient one way or another, we need to get a Lasix nuclear medicine renal scan to determine split and contributory function of the right kidney to overall renal function. If she does not have much function from the right renal unit then there is no purpose treating the stones. 2. If however she has adequate function emanating from the right renal unit then we will make plans for treatment of a bladder stone, the right renal pelvis calculus and removal of the stent with placement of a new stent. 3. I discussed this plan with the patient she has agreed to my recommendations 60 minutes spent to complete a consult, more than half of the time spent in counseling and coordination of care and addressing all questions and concerns post by patient, some time was spent discussing with members of her care team, the rest of the time was spent reviewing medical records especially imaging data. BRENNAN BRAY MD Nov 29, 2024 21:29
[2024-11-30] VITALS (8 sets, daily range): BP systolic 91–108; BP diastolic 56–65; PULSE 66–89; RESP 16–19; TEMP 97.4–98.6; O2SAT 97
[2024-11-30 05:57] LABS: HEMATOCRIT 33.2 % (36-48); MEAN CORPUSCULAR HEMOGLOBIN 24.2 pg (27.0-33.0); MEAN CORPUSCULAR HGB CONC 29.8 g/dL (32.0-36.0); MEAN CORPUSCULAR VOLUME 81.2 fL (79-99); PLATELET COUNT (AUTO) 222 K/uL (130-400); RED BLOOD CELL COUNT(AUTO) 4.09 MIL/uL (4.00-5.50); WHITE BLOOD COUNT (AUTO) 8.3 K/uL (4.8-10.8)
[2024-11-30 06:32] LABS: ALBUMIN 2.3 g/dL (3.5-5.0); BILIRUBIN,TOTAL 0.2 mg/dL (0.2-1.0); CREATININE 0.8 mg/dL (0.5-1.0); MAGNESIUM 2.1 mg/dL (1.80-2.40); POTASSIUM 4.9 mmol/L (3.5-5.1)
[2024-11-30] MEDS: furoSEMIDE 20MG VIAL ONE (08:10)
--- NOTE | 2024-11-30 14:16 | PN ---
[facility] PROGRESS NOTE Date of Service: Nov 30, 2024 Time of Service: 14:16 SUBJECTIVE: This is a 39-year-old female with significant history of kidney stone (with a right nephrostomy tube placed on October 26 2024t [facility] and right percutaneous drain placed on 11/08/2024 in this facility by IR) who presented to the ED for complaints of intractable right flank pain. CT abdomen and pelvis with contrast result revealed left kidney is unremarkable. Right kidney shows chronic hydronephrosis with an internal double-J catheter in place as well as right renal collecting system calculus. The hydronephrosis appears chronic with perirenal stranding and significant loss of renal cortical thickness as well as severe decrease in renal excretion of contrast material. Urinary bladder calculus. During my visit the patient is comfortable, sitting in the chair, alert oriented x3, hemodynamically stable, getting IV fluids and IV antibiotics. 11/30 patient is seen and examined at bedside, case discussed with the RN, no acute events overnight, patient comfortably in bed during my visit, alert oriented x3, hemodynamically stable, afebrile, saturating normal on room air. Back in the room from having renal scan. REVIEW OF SYSTEMS CONSTITUTIONAL: Denies fevers, chills, or night sweats. No unintentional weight loss reported. NEUROLOGICAL: Denies headache, amaurosis fugax, motor weakness, sensory deficit, vertigo/spinning sensation, gait abnormalities, or tremors. ENT: No hearing loss, otalgia, otorrhea, rhinitis, rhinorrhea, hoarseness, or sore throat. CARDIOVASCULAR: Denies any exertional angina, dyspnea on exertion, orthopnea, paroxysmal nocturnal dyspnea, palpitations, life-threatening arrhythmias, claudication. PULMONARY: Denies any shortness of breath, cough, phlegm/sputum, hemoptysis, pleuritic chest pain. SLEEP: Denies morning headaches, daytime somnolence or napping. Denies difficulty falling asleep, staying asleep, waking from sleep. Denies knowledge of snoring. GASTROINTESTINAL: Denies any type of dysphagia to either liquids or solids. Denies nausea, vomiting, pyrosis, early satiety, abdominal pain, diarrhea, constipation, or changes in stool consistency or caliber. Denies coffee-ground emesis, hematemesis, hematochezia, or melanotic stools. GENITOURINARY: Complain of right flank pain Denies frequency, urgency, nocturia, hematuria or incontinence (Storage/Irritative symptoms.) Low urinary stream, straining to void, urinary intermittency or hesitancy, splitting of the voiding stream, terminal dribbling. ENDOCRINOLOGIC: Denies polyuria, polydipsia, polyphagia or heat/cold intolerances. HEMATOLOGIC: Denies thrombophilia/previous clots, or coagulopathy/bleeding disorders. ONCOLOGIC: Denies personal history of malignancy. DERMATOLOGIC: Denies rashes or pruritus. PSYCHIATRIC: Denies any suicidal or homicidal ideation. Denies hallucinations. PHYSICAL EXAM GENERAL APPEARANCE: The patient is awake, alert, and oriented, in no acute cardiopulmonary distress. NEUROLOGICAL: Cranial nerves II-XII grossly intact. Motor is 5/5 in bilateral upper and lower extremities proximal to distal. No sensory deficits. HEENT: Face is symmetric. Pupils are equal and reactive. Extraocular movements are intact. NECK: Supple. No JVD. No thyromegaly. No submental, submandibular, pre- /postauricular, occipital or supraclavicular lymphadenopathy. CHEST: Normal chest expansion. No Telemetry. LUNGS: Absence of any rales, rhonchi or any wheezing. CARDIOVASCULAR: Regular. S1 and S2 normal. No appreciable rubs, murmurs or gallops. ABDOMEN: Soft, nontender, and nondistended. There is no rebound, voluntary guarding, or rigidity. : Deferred. Patient has right nephrostomy tube that is not draining. Patient also has right percutaneous drain for abscess EXTREMITIES: Non-edematous and not cyanotic. No clubbing. Good capillary refill. SKIN: No skin breakdown. Vital Signs (last 8hr) Date Time Temp Pulse Resp B/P (MAP) Pulse Ox O2 Delivery O2 Flow Rate FiO2 11/30/24 11:26 97.3 85 16 94/60 98 Room Air 11/30/24 07:59 97.5 66 16 98/56 97 Room Air LABS: Laboratory: Test 11/30/24 05:25 11/29/24 06:52 11/28/24 20:12 11/28/24 19:31 Range/Units White Blood Count 8.3 4.8-10.8 K/uL Red Blood Count 4.09 4.00-5.50 MIL/uL Hemoglobin 9.9 L 12.0-16.0 g/dL Hematocrit 33.2 L 36-48 % Mean Corpuscular Volume 81.2 79-99 fL Mean Corpuscular Hemoglobin 24.2 L 27.0-33.0 pg Mean Corpuscular Hemoglobin Concent 29.8 L 32.0-36.0 g/dL Red Cell Distribution Width 11.0-15.5 % Platelet Count 222 130-400 K/uL Mean Platelet Volume 9.8 7.5-10.5 fL Nucleated Red Blood Cells 0.0 0.0-0.19 % Sodium Level 139 136-145 mmol/L Potassium Level 4.9 3.5-5.1 mmol/L Chloride Level 107 101-111 mmol/L Carbon Dioxide Level 26 21-32 mmol/L Blood Urea Nitrogen 8 7-18 mg/dL Creatinine 0.8 0.5-1.0 mg/dL Glomerular Filtration Rate Calc 97 >90 mL/min Random Glucose 88 70-105 mg/dL Total Calcium 8.4 L 8.5-10.1 mg/dL Magnesium Level 2.10 1.80-2.40 mg/dL Total Bilirubin 0.2 0.2-1.0 mg/dL Aspartate Amino Transf (AST/SGOT) 19 10-37 U/L Alanine Aminotransferase (ALT/SGPT) 18 12-78 U/L Alkaline Phosphatase 131 50-136 U/L Total Protein 8.0 6.0-8.3 g/dL Albumin 2.3 L 3.5-5.0 g/dL Immature Granulocyte % (Auto) 0.5 0-1 % Neutrophils (%) (Auto) 65.4 40.0-77.0 % Lymphocytes (%) (Auto) 21.3 21.0-51.0 % Monocytes (%) (Auto) 9.1 3.0-13.0 % Eosinophils (%) (Auto) 2.4 0.0-8.0 % Basophils (%) (Auto) 1.3 0.0-5.0 % Neutrophils # (Auto) 6.2 1.8-7.7 K/uL Lymphocytes # (Auto) 2.0 1.0-4.8 K/uL Monocytes # (Auto) 0.9 0.1-1.0 K/uL Eosinophils # (Auto) 0.23 0.00-0.70 K/uL Basophils # (Auto) 0.12 0.00-0.20 K/uL Absolute Immature Granulocyte (auto 0.05 0-1 K/uL Prothrombin Time 10.4 9.6-11.6 SEC Prothromb Time International Ratio 0.98 0.85-1.15 Activated Partial Thromboplast Time 27.7 26.3-35.5 SEC Urine Color YELLOW YELLOW Urine Appearance TURBID CLEAR Urine pH 6.0 5.0-8.0 Urine Specific [place] 1.030 1.001-1.031 Urine Protein 70 H NEGATIVE mg/dL Urine Glucose (UA) NEGATIVE NEGATIVE mg/dL Urine Ketones NEGATIVE NEGATIVE mg/dL Urine Occult Blood MODERATE H NEGATIVE Urine Nitrate NEGATIVE NEGATIVE Urine Bilirubin NEGATIVE NEGATIVE mg/dL Urine Urobilinogen 2.0 H 0.2-1.0 mg/dL Urine Leukocyte Esterase 500 H NEGATIVE Lin/uL Urine RBC 51-100 H 0-1 /HPF Urine WBC >100 H 0-1 /HPF Urine WBC Clumps (Auto) FEW 0-1 /HPF Urine Squamous Epithelial Cells RARE 0-2 /HPF Urine Other Crystals (Auto) 20 None Seen /HPF Urine Bacteria RARE None Seen /HPF Urine Yeast FEW None Seen /HPF Direct Bilirubin 0.1 0.0-0.3 mg/dL Lipase 30 16-77 U/L Serum Test, Qualitative NEGATIVE NEGATIVE Current Medications Medications (Trade) Dose Ordered Sig/Karen Route PRN Reason Start Time Stop Time Status Last Admin Dose Admin Acetaminophen (TYLenol 325MG TAB) 650 mg Q4H PRN PO MILD PAIN (1-3) 11/28/24 22:30 12/28/24 22:29 Acetaminophen (TYLenol 325MG TAB) 650 mg Q6H PRN PO TEMPERATURE GREATER THAN 101.5 11/28/24 22:30 12/28/24 22:29 Acetaminophen/ Hydrocodone Bitart (NORco 5/325MG) 1 tab Q4H PRN PO MODERATE PAIN (4-6) 11/28/24 22:30 12/03/24 22:29 Acetaminophen/ Hydrocodone Bitart (NORco 5/325MG) 2 tab Q4H PRN PO SEVERE PAIN (7-10) 11/28/24 22:30 12/03/24 22:29 11/29/24 20:45 2 TAB Ceftriaxone Sodium (ROCEphine 1G INJ) 1 gm BID IV 11/29/24 09:00 12/09/24 08:59 11/30/24 08:46 1 GM Famotidine (Pepcid 20mg Vial) 20 mg BID IV 11/29/24 09:00 12/29/24 08:59 11/30/24 08:46 20 MG Ondansetron HCl (zoFRAN 4MG INJ) 4 mg Q6H PRN IV NAUSEA/VOMITING 11/28/24 22:30 12/28/24 22:29 Sodium Chloride 1,000 ml @ 75 mls/hr [id number] IV 11/28/24 22:30 12/28/24 22:29 11/30/24 01:36 75 MLS/HR DIAGNOSTICS / RADIOLOGY: [ ] ASSESSMENT: Intractable right flank pain POA Complicated urinary tract infection POA Urinary bladder calculus per CT POA Chronic right kidney hydronephrosis per CT POA Recent right percutaneous drain for abscess POA Recent right nephrostomy tube placement on October 26t [facility] Mild hyponatremia POA Protein calorie malnutrition POA History of kidney stone POA PLAN: The patient remains admitted to the medical floor Continue supportive care with IV fluids, pain medication as well as broad- spectrum IV antibiotics, continue to follow results of septic workup. Urology consultation requested, input noted and appreciated, follow results of renal scan. NEURO: Minimize central acting medications as possible. Fall Precautions. Well lighted room through the day and minimize interruptions through the night to prevent acute delirium. PULMONARY: Supplemental 02 as needed BiPAP as necessary, for respiratory distress Titrate Fio2 to keep Spo2 > or = 90% DuoNebs and CPT as needed IS hourly while awake for pulmonary hygiene prn Out of bed to chair as tolerated Maintain aspiration precautions at all times CARDIOVASCULAR: Follow hemodynamics. Vital signs per facility protocol GI & NUTRITION: Continue nutritional support Aspirations precautions Prokinetic agents and laxatives as needed KIDNEYS & ELECTROLYTES: Strict monitoring of intake and output Daily weights Avoid nephrotoxic agents Monitor electrolytes and replace as needed Goal urine output of 30mL/hr or 0.5mL/kg/hr Medications to be dosed according to renal function. Avoid contrast if possible ENDOCRINE: Maintain blood glucose between 100-180 at all times. Insulin sliding scale for blood glucose management Hypoglycemia and hyperglycemia protocol in place INFECTIOUS DISEASE: Trend temperature, WBC and procalcitonin level Follow cultures, deescalate antibiotics as soon as possible. Panculture if new onset fever HEMATOLOGY & COAGULATION: Monitor H&H. Keep Hgb > 7 Transfuse 1 unit of PRBC for Hgb < 7 Transfuse 1 pack of platelets of platelets < 20, 000 Watch for any signs and symptoms of bleeding SKIN: Pressure ulcer prevention per facility protocol Specialty mattress as needed ORTHO/REHAB Continue PT/OT PRN: MEDICATIONS Tylenol 650 mg po every 4 hrs for fever zofran 4 mg IV every 6 hrs for n/v Hydralazine 5 mg IV every 4 hrs systolic pressure > 160 bowel regiment: lactulose 20 gm PO BID PRN constipation Supportive measures: Continue GI and DVT prophylaxis Disposition: Pending improvement in clinical condition All questions answered time spent: > 35 min Case discussed with attending physician and came up with above treatment and plan of care. RICARDO YOUNG MD Nov 30, 2024 14:16
--- NOTE | 2024-11-30 14:32 | HMCIMG ---
NM RENOGRAM W/ LASIX HISTORY: Possible right-sided XGP with no function TECHNIQUE: The patient was injected with 7.5mCi of technetium 99 MAG3. Lasix renogram was performed as well, with injection of 19 .0 mg of Lasix at the 7 minute niru. Sequential posterior images were obtained and the renogram curve results were calculated. FINDINGS: Lasix renogram shows split renal function 98.2% left and 1.8% right. This is consistent with an essentially nonfunctioning right kidney. Peak time renal activity of 4 minutes on the left. (Normal is 3-5 minutes.) The T1/2 post peaktime is 9.1 minutes on the left . (Normal is 10 mins or less.) IMPRESSION: 1. No evidence of renal/ureteral obstruction. 2. Split renal function % left and % right. Essentially nonfunctioning right kidney.
[2024-11-30] MEDS: HYDROcodone/APAP 5/325 1 TAB TABLET PO PRN (20:31)
--- NOTE | 2024-11-30 22:02 | PN ---
PROGRESS NOTE Date of Service: Nov 30, 2024 Time of Service: 21:58 SUBJECTIVE: Patient was able to undergo a nuclear medicine renal scan today which shows that there is almost no function left in the right kidney. Split function was 1.8% on the right side and 98.2% on the left side. At this point the utility of performing an aggressive stone procedure to salvage the kidney is moot. Patient and I started discussing today the possibility of a right radical nephrectomy. However in the meantime she is going to need removal of the large bladder stone and maybe removal of the nephrostomy tube in the right percutaneous abscess drain for some degree of comfort why preparing for the radical nephrectomy. REVIEW OF SYSTEMS CONSTITUTIONAL: Denies fever, chills, or fatigue. HEAD/FACE: No signs of trauma. EENT: Denies eye pain, blurred vision, double vision, or light sensitivity. RESPIRATORY: Denies shortness of breath, cough, wheezing CARDIOVASCULAR: Denies chest pain, palpitation, syncope GASTROINTESTINAL/ABDOMINAL: Denies abdominal pain, constipation, diarrhea, nausea or vomiting GENITOURINARY: Denies dysuria or hematuria. Endorses right flank pain MUSCULOSKELETAL: Denies joint pain, tenderness, or trauma. INTEGUMENTARY: Denies rash or itchiness NEUROLOGICAL/PSYCH: Denies anxiety, depression, heat or cold intolerance. PHYSICAL EXAM EYES: Anicteric. Pupils equal and reactive. HENT: No oral thrush seen, moist Oral mucosa NECK: Supple, no JVD or thyromegaly. LUNGS: Good air entry. No rales, no rhonchi. CARDIOVASCULAR: S1, S2 regular. No murmur heard. ABDOMEN: Soft, non tender, bowel sounds present, no organomegaly CENTRAL NERVOUS SYSTEM: Awake, alert, oriented x 3. No focal deficits. SKIN: No rashes, no swelling. LYMPHATICS: No peripheral lymphadenopathy MUSCULOSKELETAL: No joint swelling, erythema or tenderness. EXTREMITIES: No cyanosis or clubbing BACK: No deformity, no pressure ulcer. There are two tubes emanating from the right flank, one is a nephrostomy tube and the other one is a drain from the abscess cavity GENITOURINARY: No dysuria or hematuria Vital Signs (last 8hr) Date Time Temp Pulse Resp B/P (MAP) Pulse Ox O2 Delivery O2 Flow Rate FiO2 11/30/24 21:40 97 Room Air* 0 21 11/30/24 20:51 98.6 89 19 108/58 99 Room Air 11/30/24 14:53 98.2 77 18 94/57 99 Room Air LABS: Laboratory: Test 11/30/24 05:25 11/29/24 06:52 Range/Units White Blood Count 8.3 4.8-10.8 K/uL Red Blood Count 4.09 4.00-5.50 MIL/uL Hemoglobin 9.9 L 12.0-16.0 g/dL Hematocrit 33.2 L 36-48 % Mean Corpuscular Volume 81.2 79-99 fL Mean Corpuscular Hemoglobin 24.2 L 27.0-33.0 pg Mean Corpuscular Hemoglobin Concent 29.8 L 32.0-36.0 g/dL Red Cell Distribution Width 11.0-15.5 % Platelet Count 222 130-400 K/uL Mean Platelet Volume 9.8 7.5-10.5 fL Nucleated Red Blood Cells 0.0 0.0-0.19 % Sodium Level 139 136-145 mmol/L Potassium Level 4.9 3.5-5.1 mmol/L Chloride Level 107 101-111 mmol/L Carbon Dioxide Level 26 21-32 mmol/L Blood Urea Nitrogen 8 7-18 mg/dL Creatinine 0.8 0.5-1.0 mg/dL Glomerular Filtration Rate Calc 97 >90 mL/min Random Glucose 88 70-105 mg/dL Total Calcium 8.4 L 8.5-10.1 mg/dL Magnesium Level 2.10 1.80-2.40 mg/dL Total Bilirubin 0.2 0.2-1.0 mg/dL Aspartate Amino Transf (AST/SGOT) 19 10-37 U/L Alanine Aminotransferase (ALT/SGPT) 18 12-78 U/L Alkaline Phosphatase 131 50-136 U/L Total Protein 8.0 6.0-8.3 g/dL Albumin 2.3 L 3.5-5.0 g/dL Immature Granulocyte % (Auto) 0.5 0-1 % Neutrophils (%) (Auto) 65.4 40.0-77.0 % Lymphocytes (%) (Auto) 21.3 21.0-51.0 % Monocytes (%) (Auto) 9.1 3.0-13.0 % Eosinophils (%) (Auto) 2.4 0.0-8.0 % Basophils (%) (Auto) 1.3 0.0-5.0 % Neutrophils # (Auto) 6.2 1.8-7.7 K/uL Lymphocytes # (Auto) 2.0 1.0-4.8 K/uL Monocytes # (Auto) 0.9 0.1-1.0 K/uL Eosinophils # (Auto) 0.23 0.00-0.70 K/uL Basophils # (Auto) 0.12 0.00-0.20 K/uL Absolute Immature Granulocyte (auto 0.05 0-1 K/uL Prothrombin Time 10.4 9.6-11.6 SEC Prothromb Time International Ratio 0.98 0.85-1.15 Activated Partial Thromboplast Time 27.7 26.3-35.5 SEC DIAGNOSTICS / RADIOLOGY: CT of the abdomen and pelvis with intravenous contrast showed changes suggestive of XGP of the right kidney with abscess pockets. Percutaneous image guided drain in place in the perinephric area and the nephrostomy tube is sitting in one of the calices. There is also an indwelling stent as well as a calculus in the right renal pelvis. A Lasix renal scan obtained today 11/30/2024 showed a split function of 1.8% on the right and 98.2% on the left ASSESSMENT: 39-year-old female with a history of nephrolithiasis lost to follow up with a an indwelling right ureteral stent now with the possibility of right XGP PLAN: 1. I had a long conversation with patient about the results of the Lasix renal scan. Cloudy there is no function in the right kidney. There is no benefit of trying to treat the stones to salvage the kidney because it is nonfunctional. At this point her best treatment option would be a radical nephrectomy which based on the inflammatory changes will be better accomplished through an open procedure. 2. Why planning for a radical nephrectomy, patient would need to be treated for the bladder stone, removal of the right-sided percutaneous drain, removal of the right nephrostomy tube and possibly exchange of the indwelling right ureteral stent to a least get some degree of drainage from that right kidney prior to the nephrectomy. 30 minutes spent to complete this visit, more than half of the time spent at bedside in counseling and coordination of care and addressing all questions and concerns post by patient, some time was spent discussing with members of her care team, the rest of the time was spent reviewing medical records as well as imaging that was obtained today BRENNAN BRAY MD Nov 30, 2024 22:02
[2024-12-01] VITALS (8 sets, daily range): BP systolic 98–110; BP diastolic 53–68; PULSE 64–80; RESP 16–19; TEMP 97.8–98.3; O2SAT 99
[2024-12-01 05:26] LABS: HEMATOCRIT 33.8 % (36-48); MEAN CORPUSCULAR HEMOGLOBIN 24.6 pg (27.0-33.0); MEAN CORPUSCULAR HGB CONC 30.5 g/dL (32.0-36.0); MEAN CORPUSCULAR VOLUME 80.9 fL (79-99); PLATELET COUNT (AUTO) 224 K/uL (130-400); RED BLOOD CELL COUNT(AUTO) 4.18 MIL/uL (4.00-5.50)
[2024-12-01 05:41] LABS: ALBUMIN 2.4 g/dL (3.5-5.0); BILIRUBIN,TOTAL 0.1 mg/dL (0.2-1.0); CREATININE 0.9 mg/dL (0.5-1.0); MAGNESIUM 2.1 mg/dL (1.80-2.40); POTASSIUM 3.7 mmol/L (3.5-5.1); TOTAL PROTEIN, SERUM 8.2 g/dL (6.0-8.3)
--- NOTE | 2024-12-01 13:12 | PN ---
[facility] PROGRESS NOTE Date of Service: Dec 01, 2024 Time of Service: 13:11 SUBJECTIVE: This is a 39-year-old female with significant history of kidney stone (with a right nephrostomy tube placed on October 26 2024t [facility] and right percutaneous drain placed on 11/08/2024 in this facility by IR) who presented to the ED for complaints of intractable right flank pain. CT abdomen and pelvis with contrast result revealed left kidney is unremarkable. Right kidney shows chronic hydronephrosis with an internal double-J catheter in place as well as right renal collecting system calculus. The hydronephrosis appears chronic with perirenal stranding and significant loss of renal cortical thickness as well as severe decrease in renal excretion of contrast material. Urinary bladder calculus. During my visit the patient is comfortable, sitting in the chair, alert oriented x3, hemodynamically stable, getting IV fluids and IV antibiotics. 11/30 patient is seen and examined at bedside, case discussed with the RN, no acute events overnight, patient comfortably in bed during my visit, alert oriented x3, hemodynamically stable, afebrile, saturating normal on room air. Back in the room from having renal scan. 12/01 patient is seen and examined at bedside, case discussed with the RN, no acute events overnight, results of renal scan reviewed, discussed with the patient, urology input noted and appreciated. Currently the patient getting IV antibiotics, good pain control with current medical management. REVIEW OF SYSTEMS CONSTITUTIONAL: Denies fevers, chills, or night sweats. No unintentional weight loss reported. NEUROLOGICAL: Denies headache, amaurosis fugax, motor weakness, sensory defi cit, vertigo/spinning sensation, gait abnormalities, or tremors. ENT: No hearing loss, otalgia, otorrhea, rhinitis, rhinorrhea, hoarseness, or sore throat. CARDIOVASCULAR: Denies any exertional angina, dyspnea on exertion, orthopnea, paroxysmal nocturnal dyspnea, palpitations, life-threatening arrhythmias, claudication. PULMONARY: Denies any shortness of breath, cough, phlegm/sputum, hemoptysis, pleuritic chest pain. SLEEP: Denies morning headaches, daytime somnolence or napping. Denies difficulty falling asleep, staying asleep, waking from sleep. Denies knowledge of snoring. GASTROINTESTINAL: Denies any type of dysphagia to either liquids or solids. Denies nausea, vomiting, pyrosis, early satiety, abdominal pain, diarrhea, constipation, or changes in stool consistency or caliber. Denies coffee-ground emesis, hematemesis, hematochezia, or melanotic stools. GENITOURINARY: Complain of right flank pain Denies frequency, urgency, nocturia, hematuria or incontinence (Storage/Irritative symptoms.) Low urinary stream, straining to void, urinary intermittency or hesitancy, splitting of the voiding stream, terminal dribbling. ENDOCRINOLOGIC: Denies polyuria, polydipsia, polyphagia or heat/cold intoleranc es. HEMATOLOGIC: Denies thrombophilia/previous clots, or coagulopathy/bleeding disorders. ONCOLOGIC: Denies personal history of malignancy. DERMATOLOGIC: Denies rashes or pruritus. PSYCHIATRIC: Denies any suicidal or homicidal ideation. Denies hallucinations. PHYSICAL EXAM GENERAL APPEARANCE: The patient is awake, alert, and oriented, in no acute cardiopulmonary distress. NEUROLOGICAL: Cranial nerves II-XII grossly intact. Motor is 5/5 in bilateral upper and lower extremities proximal to distal. No sensory deficits. HEENT: Face is symmetric. Pupils are equal and reactive. Extraocular movements are intact. NECK: Supple. No JVD. No thyromegaly. No submental, submandibular, pre- /postauricular, occipital or supraclavicular lymphadenopathy. CHEST: Normal chest expansion. No Telemetry. LUNGS: Absence of any rales, rhonchi or any wheezing. CARDIOVASCULAR: Regular. S1 and S2 normal. No appreciable rubs, murmurs or gallops. ABDOMEN: Soft, nontender, and nondistended. There is no rebound, voluntary guarding, or rigidity. : Deferred. Patient has right nephrostomy tube that is not draining. Patient also has right percutaneous drain for abscess EXTREMITIES: Non-edematous and not cyanotic. No clubbing. Good capillary refill. SKIN: No skin breakdown. Vital Signs (last 8hr) Date Time Temp Pulse Resp B/P (MAP) Pulse Ox O2 Delivery O2 Flow Rate FiO2 12/01/24 11:36 98.1 70 16 98/53 100 Room Air 12/01/24 07:53 97.9 64 16 99/61 99 Room Air LABS: Laboratory: Test 12/01/24 04:50 Range/Units White Blood Count 8.0 4.8-10.8 K/uL Red Blood Count 4.18 4.00-5.50 MIL/uL Hemoglobin 10.3 L 12.0-16.0 g/dL Hematocrit 33.8 L 36-48 % Mean Corpuscular Volume 80.9 79-99 fL Mean Corpuscular Hemoglobin 24.6 L 27.0-33.0 pg Mean Corpuscular Hemoglobin Concent 30.5 L 32.0-36.0 g/dL Red Cell Distribution Width 11.0-15.5 % Platelet Count 224 130-400 K/uL Mean Platelet Volume 9.6 7.5-10.5 fL Nucleated Red Blood Cells 0.0 0.0-0.19 % Sodium Level 136 136-145 mmol/L Potassium Level 3.7 3.5-5.1 mmol/L Chloride Level 105 101-111 mmol/L Carbon Dioxide Level 27 21-32 mmol/L Blood Urea Nitrogen 14 7-18 mg/dL Creatinine 0.9 0.5-1.0 mg/dL Glomerular Filtration Rate Calc 84 >90 mL/min Random Glucose 98 70-105 mg/dL Total Calcium 8.1 L 8.5-10.1 mg/dL Magnesium Level 2.10 1.80-2.40 mg/dL Total Bilirubin 0.1 #L 0.2-1.0 mg/dL Aspartate Amino Transf (AST/SGOT) 17 10-37 U/L Alanine Aminotransferase (ALT/SGPT) 15 12-78 U/L Alkaline Phosphatase 146 H 50-136 U/L Total Protein 8.2 6.0-8.3 g/dL Albumin 2.4 L 3.5-5.0 g/dL Current Medications Medications (Trade) Dose Ordered Sig/Karen Route PRN Reason Start Time Stop Time Status Last Admin Dose Admin Acetaminophen (TYLenol 325MG TAB) 650 mg Q4H PRN PO MILD PAIN (1-3) 11/28/24 22:30 12/28/24 22:29 Acetaminophen (TYLenol 325MG TAB) 650 mg Q6H PRN PO TEMPERATURE GREATER THAN 101.5 11/28/24 22:30 12/28/24 22:29 Acetaminophen/ Hydrocodone Bitart (NORco 5/325MG) 1 tab Q4H PRN PO MODERATE PAIN (4-6) 11/28/24 22:30 3/15/25 22:29 11/30/24 20:31 1 TAB Acetaminophen/ Hydrocodone Bitart (NORco 5/325MG) 2 tab Q4H PRN PO SEVERE PAIN (7-10) 11/28/24 22:30 12/03/24 22:29 12/01/24 01:18 2 TAB Ceftriaxone Sodium (ROCEphine 1G INJ) 1 gm BID IV 11/29/24 09:00 12/09/24 08:59 12/01/24 08:55 1 GM Famotidine (Pepcid 20mg Vial) 20 mg BID IV 11/29/24 09:00 12/29/24 08:59 12/01/24 08:55 20 MG Ondansetron HCl (zoFRAN 4MG INJ) 4 mg Q6H PRN IV NAUSEA/VOMITING 11/28/24 22:30 12/28/24 22:29 Sodium Chloride 1,000 ml @ 75 mls/hr [id number] IV 11/28/24 22:30 12/28/24 22:29 11/30/24 01:36 75 MLS/HR DIAGNOSTICS / RADIOLOGY: [ ] ASSESSMENT: Intractable right flank pain POA Complicated urinary tract infection POA Urinary bladder calculus per CT POA Chronic right kidney hydronephrosis per CT POA Nonfunctioning right kidney Recent right percutaneous drain for abscess POA Recent right nephrostomy tube placement on October 26t [facility] [place] Mild hyponatremia POA Protein calorie malnutrition POA History of kidney stone POA PLAN: The patient remains admitted to the medical floor Continue supportive care with IV fluids, pain medication as well as broad-s pectrum IV antibiotics, continue to follow results of septic workup. Urology input noted and appreciated, results of renal scan no evidence of renal/ureteral obstruction, nonfunctioning right kidney. We will continue to follow further recommendations from urologist. NEURO: Minimize central acting medications as possible. Fall Precautions. Well lighted room through the day and minimize interruptions through the night to prevent acute delirium. PULMONARY: Supplemental 02 as needed BiPAP as necessary, for respiratory distress Titrate Fio2 to keep Spo2 > or = 90% DuoNebs and CPT as needed IS hourly while awake for pulmonary hygiene prn Out of bed to chair as tolerated Maintain aspiration precautions at all times CARDIOVASCULAR: Follow hemodynamics. Vital signs per facility protocol GI & NUTRITION: Continue nutritional support Aspirations precautions Prokinetic agents and laxatives as needed KIDNEYS & ELECTROLYTES: Strict monitoring of intake and output Daily weights Avoid nephrotoxic agents Monitor electrolytes and replace as needed Goal urine output of 30mL/hr or 0.5mL/kg/hr Medications to be dosed according to renal function. Avoid contrast if possible ENDOCRINE: Maintain blood glucose between 100-180 at all times. Insulin sliding scale for blood glucose management Hypoglycemia and hyperglycemia protocol in place INFECTIOUS DISEASE: Trend temperature, WBC and procalcitonin level Follow cultures, deescalate antibiotics as soon as possible. Panculture if new onset fever HEMATOLOGY & COAGULATION: Monitor H&H. Keep Hgb > 7 Transfuse 1 unit of PRBC for Hgb < 7 Transfuse 1 pack of platelets of platelets < 20, 000 Watch for any signs and symptoms of bleeding SKIN: Pressure ulcer prevention per facility protocol Specialty mattress as needed ORTHO/REHAB Continue PT/OT PRN: MEDICATIONS Tylenol 650 mg po every 4 hrs for fever zofran 4 mg IV every 6 hrs for n/v Hydralazine 5 mg IV every 4 hrs systolic pressure > 160 bowel regiment: lactulose 20 gm PO BID PRN constipation Supportive measures: Continue GI and DVT prophylaxis Disposition: Pending improvement in clinical condition All questions answered time spent: > 35 min Case discussed with attending physician and came up with above treatment and plan of care. RICARDO YOUNG MD Dec 01, 2024 13:12
[2024-12-02] VITALS (7 sets, daily range): BP systolic 103–118; BP diastolic 62–84; PULSE 63–79; RESP 16–19; TEMP 97.8–98.8; O2SAT 97–100
[2024-12-02 04:37] LABS: HEMATOCRIT 33.9 % (36-48); MEAN CORPUSCULAR HEMOGLOBIN 24.5 pg (27.0-33.0); MEAN CORPUSCULAR HGB CONC 30.7 g/dL (32.0-36.0); MEAN CORPUSCULAR VOLUME 79.8 fL (79-99); PLATELET COUNT (AUTO) 242 K/uL (130-400); RED BLOOD CELL COUNT(AUTO) 4.25 MIL/uL (4.00-5.50)
[2024-12-02 05:00] LABS: ALBUMIN 2.5 g/dL (3.5-5.0); BILIRUBIN,TOTAL 0.2 mg/dL (0.2-1.0); CREATININE 0.8 mg/dL (0.5-1.0); MAGNESIUM 2.1 mg/dL (1.80-2.40); TOTAL PROTEIN, SERUM 8.5 g/dL (6.0-8.3)
--- NOTE | 2024-12-02 13:23 | PN ---
[facility] PROGRESS NOTE Date of Service: Dec 02, 2024 Time of Service: 13:22 SUBJECTIVE: This is a 39-year-old female with significant history of kidney stone (with a right nephrostomy tube placed on October 26 2024t [facility] and right percutaneous drain placed on 11/08/2024 in this facility by IR) who presented to the ED for complaints of intractable right flank pain. CT abdomen and pelvis with contrast result revealed left kidney is unremarkable. Right kidney shows chronic hydronephrosis with an internal double-J catheter in place as well as right renal collecting system calculus. The hydronephrosis appears chronic with perirenal stranding and significant loss of renal cortical thickness as well as severe decrease in renal excretion of contrast material. Urinary bladder calculus. During my visit the patient is comfortable, sitting in the chair, alert oriented x3, hemodynamically stable, getting IV fluids and IV antibiotics. 11/30 patient is seen and examined at bedside, case discussed with the RN, no acute events overnight, patient comfortably in bed during my visit, alert oriented x3, hemodynamically stable, afebrile, saturating normal on room air. Back in the room from having renal scan. 12/01 patient is seen and examined at bedside, case discussed with the RN, no acute events overnight, results of renal scan reviewed, discussed with the patient, urology input noted and appreciated. Currently the patient getting IV antibiotics, good pain control with current medical management. 12/02 patient is seen and examined at bedside, no acute events, denied chest pain, shortness shortness for breath, nausea, no vomiting, no abdominal discomfort, getting IV antibiotics during my visit. REVIEW OF SYSTEMS CONSTITUTIONAL: Denies fevers, chills, or night sweats. No unintentional weight loss reported. NEUROLOGICAL: Denies headache, amaurosis fugax, motor weakness, sensory deficit, vertigo/spinning sensation, gait abnormalities, or tremors. ENT: No hearing loss, otalgia, otorrhea, rhinitis, rhinorrhea, hoarseness, or sore throat. CARDIOVASCULAR: Denies any exertional angina, dyspnea on exertion, orthopnea, paroxysmal nocturnal dyspnea, palpitations, life-threatening arrhythmias, claudication. PULMONARY: Denies any shortness of breath, cough, phlegm/sputum, hemoptysis, pleuritic chest pain. SLEEP: Denies morning headaches, daytime somnolence or napping. Denies difficulty falling asleep, staying asleep, waking from sleep. Denies knowledge of snoring. GASTROINTESTINAL: Denies any type of dysphagia to either liquids or solids. Denies nausea, vomiting, pyrosis, early satiety, abdominal pain, diarrhea, constipation, or changes in stool consistency or caliber. Denies coffee-ground emesis, hematemesis, hematochezia, or melanotic stools. GENITOURINARY: Complain of right flank pain Denies frequency, urgency, nocturia, hematuria or incontinence (Storage/Irritative symptoms.) Low urinary stream, straining to void, urinary intermittency or hesitancy, splitting of the voiding stream, terminal dribbling. ENDOCRINOLOGIC: Denies polyuria, polydipsia, polyphagia or heat/cold intolerances. HEMATOLOGIC: Denies thrombophilia/previous clots, or coagulopathy/bleeding disorders. ONCOLOGIC: Denies personal history of malignancy. DERMATOLOGIC: Denies rashes or pruritus. PSYCHIATRIC: Denies any suicidal or homicidal ideation. Denies hallucinations. PHYSICAL EXAM GENERAL APPEARANCE: The patient is awake, alert, and oriented, in no acute cardiopulmonary distress. NEUROLOGICAL: Cranial nerves II-XII grossly intact. Motor is 5/5 in bilateral upper and lower extremities proximal to distal. No sensory deficits. HEENT: Face is symmetric. Pupils are equal and reactive. Extraocular movements are intact. NECK: Supple. No JVD. No thyromegaly. No submental, submandibular, pre- /postauricular, occipital or supraclavicular lymphadenopathy. CHEST: Normal chest expansion. No Telemetry. LUNGS: Absence of any rales, rhonchi or any wheezing. CARDIOVASCULAR: Regular. S1 and S2 normal. No appreciable rubs, murmurs or gallops. ABDOMEN: Soft, nontender, and nondistended. There is no rebound, voluntary guarding, or rigidity. : Deferred. Patient has right nephrostomy tube that is not draining. Patient also has right percutaneous drain for abscess EXTREMITIES: Non-edematous and not cyanotic. No clubbing. Good capillary refill. SKIN: No skin breakdown. Vital Signs (last 8hr) Date Time Temp Pulse Resp B/P (MAP) Pulse Ox O2 Delivery O2 Flow Rate FiO2 12/02/24 11:49 98.1 65 19 103/62 98 3/14/25 08:00 97.9 63 18 106/67 99 LABS: Laboratory: Test 12/02/24 04:24 Range/Units White Blood Count 8.0 4.8-10.8 K/uL Red Blood Count 4.25 4.00-5.50 MIL/uL Hemoglobin 10.4 L 12.0-16.0 g/dL Hematocrit 33.9 L 36-48 % Mean Corpuscular Volume 79.8 79-99 fL Mean Corpuscular Hemoglobin 24.5 L 27.0-33.0 pg Mean Corpuscular Hemoglobin Concent 30.7 L 32.0-36.0 g/dL Red Cell Distribution Width 11.0-15.5 % Platelet Count 242 130-400 K/uL Mean Platelet Volume 9.2 7.5-10.5 fL Nucleated Red Blood Cells 0.0 0.0-0.19 % Sodium Level 137 136-145 mmol/L Potassium Level 4.0 3.5-5.1 mmol/L Chloride Level 105 101-111 mmol/L Carbon Dioxide Level 27 21-32 mmol/L Blood Urea Nitrogen 9 7-18 mg/dL Creatinine 0.8 0.5-1.0 mg/dL Glomerular Filtration Rate Calc 97 >90 mL/min Random Glucose 84 70-105 mg/dL Total Calcium 8.5 8.5-10.1 mg/dL Magnesium Level 2.10 1.80-2.40 mg/dL Total Bilirubin 0.2 # 0.2-1.0 mg/dL Aspartate Amino Transf (AST/SGOT) 20 10-37 U/L Alanine Aminotransferase (ALT/SGPT) 18 12-78 U/L Alkaline Phosphatase 136 50-136 U/L Total Protein 8.5 H 6.0-8.3 g/dL Albumin 2.5 L 3.5-5.0 g/dL Current Medications Medications (Trade) Dose Ordered Sig/Kaern Route PRN Reason Start Time Stop Time Status Last Admin Dose Admin Acetaminophen (TYLenol 325MG TAB) 650 mg Q4H PRN PO MILD PAIN (1-3) 11/28/24 22:30 12/28/24 22:29 Acetaminophen (TYLenol 325MG TAB) 650 mg Q6H PRN PO TEMPERATURE GREATER THAN 101.5 11/28/24 22:30 12/28/24 22:29 Acetaminophen/ Hydrocodone Bitart (NORco 5/325MG) 1 tab Q4H PRN PO MODERATE PAIN (4-6) 11/28/24 22:30 12/03/24 22:29 11/30/24 20:31 1 TAB Acetaminophen/ Hydrocodone Bitart (NORco 5/325MG) 2 tab Q4H PRN PO SEVERE PAIN (7-10) 11/28/24 22:30 12/03/24 22:29 12/02/24 08:44 2 TAB Ceftriaxone Sodium (ROCEphine 1G INJ) 1 gm BID IV 11/29/24 09:00 12/09/24 08:59 12/02/24 08:44 1 GM Famotidine (Pepcid 20mg Vial) 20 mg BID IV 11/29/24 09:00 12/29/24 08:59 12/02/24 08:43 20 MG Ondansetron HCl (zoFRAN 4MG INJ) 4 mg Q6H PRN IV NAUSEA/VOMITING 11/28/24 22:30 12/28/24 22:29 Sodium Chloride 1,000 ml @ 75 mls/hr [id number] IV 11/28/24 22:30 12/28/24 22:29 12/01/24 17:12 75 MLS/HR DIAGNOSTICS / RADIOLOGY: [ ] ASSESSMENT: Intractable right flank pain POA Complicated urinary tract infection POA Urinary bladder calculus per CT POA Chronic right kidney hydronephrosis per CT POA Nonfunctioning right kidney Recent right percutaneous drain for abscess POA Recent right nephrostomy tube [place] [facility] hyponatremia POA Protein calorie malnutrition POA History of kidney stone POA PLAN: The patient remains admitted to the medical floor Continue supportive care with IV fluids, pain medication as well as broad- spectrum IV antibiotics, continue to follow results of septic workup. Urology input noted and appreciated, results of renal scan no evidence of renal/ureteral obstruction, nonfunctioning right kidney. Possible urological intervention today, we will follow up. NEURO: Minimize central acting medications as possible. Fall Precautions. Well lighted room through the day and minimize interruptions through the night to prevent acute delirium. PULMONARY: Supplemental 02 as needed BiPAP as necessary, for respiratory distress Titrate Fio2 to keep Spo2 > or = 90% DuoNebs and CPT as needed IS hourly while awake for pulmonary hygiene prn Out of bed to chair as tolerated Maintain aspiration precautions at all times CARDIOVASCULAR: Follow hemodynamics. Vital signs per facility protocol GI & NUTRITION: Continue nutritional support Aspirations precautions Prokinetic agents and laxatives as needed KIDNEYS & ELECTROLYTES: Strict monitoring of intake and output Daily weights Avoid nephrotoxic agents Monitor electrolytes and replace as needed Goal urine output of 30mL/hr or 0.5mL/kg/hr Medications to be dosed according to renal function. Avoid contrast if possible ENDOCRINE: Maintain blood glucose between 100-180 at all times. Insulin sliding scale for blood glucose management Hypoglycemia and hyperglycemia protocol in place INFECTIOUS DISEASE: Trend temperature, WBC and procalcitonin level Follow cultures, deescalate antibiotics as soon as possible. Panculture if new onset fever HEMATOLOGY & COAGULATION: Monitor H&H. Keep Hgb > 7 Transfuse 1 unit of PRBC for Hgb < 7 Transfuse 1 pack of platelets of platelets < 20, 000 Watch for any signs and symptoms of bleeding SKIN: Pressure ulcer prevention per facility protocol Specialty mattress as needed ORTHO/REHAB Continue PT/OT PRN: MEDICATIONS Tylenol 650 mg po every 4 hrs for fever zofran 4 mg IV every 6 hrs for n/v Hydralazine 5 mg IV every 4 hrs systolic pressure > 160 bowel regiment: lactulose 20 gm PO BID PRN constipation Supportive measures: Continue GI and DVT prophylaxis Disposition: Pending improvement in clinical condition All questions answered time spent: > 35 min Case discussed with attending physician and came up with above treatment and plan of care. RICARDO YOUNG MD Dec 02, 2024 13:23
--- NOTE | 2024-12-02 21:18 | NUR ---
SURGERY SENT MESSAGE TO DR BRAY REGARDING SURGERY FOR TODAY PENDING CALL BACK
--- NOTE | 2024-12-02 21:40 | NUR ---
PER DR BRAY WILL COME BY AND SPEAK TO PATIENT TONDANILO
[2024-12-03] VITALS (9 sets, daily range): BP systolic 97–153; BP diastolic 58–94; PULSE 68–93; RESP 16–22; TEMP 97.6–98.4; O2SAT 98
[2024-12-03 05:40] LABS: HEMATOCRIT 34.9 % (36-48); MEAN CORPUSCULAR HGB CONC 31.2 g/dL (32.0-36.0); PLATELET COUNT (AUTO) 262 K/uL (130-400); RED BLOOD CELL COUNT(AUTO) 4.36 MIL/uL (4.00-5.50); WHITE BLOOD COUNT (AUTO) 7.9 K/uL (4.8-10.8)
[2024-12-03 05:56] LABS: ALBUMIN 2.5 g/dL (3.5-5.0); BILIRUBIN,TOTAL 0.1 mg/dL (0.2-1.0); CREATININE 0.8 mg/dL (0.5-1.0); MAGNESIUM 2.1 mg/dL (1.80-2.40); POTASSIUM 3.6 mmol/L (3.5-5.1); TOTAL PROTEIN, SERUM 8.6 g/dL (6.0-8.3)
--- NOTE | 2024-12-03 07:20 | NUR ---
PT is received from the night order selector nurse. This patient is in no distress and is back on a regular diet. She is in no distress and denies pain. The bed is in a low position and the call burris is in reach. The percutaneous drain is draining scan amount of purilent drainage. There continues to be no output from the right nephrostomy tube.
--- NOTE | 2024-12-03 09:30 | PN ---
[facility] PROGRESS NOTE Date of Service: Dec 03, 2024 Time of Service: 09:29 SUBJECTIVE: This is a 39-year-old female with significant history of kidney stone (with a right nephrostomy tube placed on October 26 2024t [facility] and right percutaneous drain placed on 11/08/2024 in this facility by IR) who presented to the ED for complaints of intractable right flank pain. CT abdomen and pelvis with contrast result revealed left kidney is unremarkable. Right kidney shows chronic hydronephrosis with an internal double-J catheter in place as well as right renal collecting system calculus. The hydronephrosis appears chronic with perirenal stranding and significant loss of renal cortical thickness as well as severe decrease in renal excretion of contrast material. Urinary bladder calculus. During my visit the patient is comfortable, sitting in the chair, alert oriented x3, hemodynamically stable, getting IV fluids and IV antibiotics. 11/30 patient is seen and examined at bedside, case discussed with the RN, no acute events overnight, patient comfortably in bed during my visit, alert oriented x3, hemodynamically stable, afebrile, saturating normal on room air. Back in the room from having renal scan. 12/01 patient is seen and examined at bedside, case discussed with the RN, no acute events overnight, results of renal scan reviewed, discussed with the patient, urology input noted and appreciated. Currently the patient getting IV antibiotics, good pain control with current medical management. 12/02 patient is seen and examined at bedside, no acute events, denied chest pain, shortness shortness for breath, nausea, no vomiting, no abdominal discomfort, getting IV antibiotics during my visit. 12/03 patient is seen and examined at bedside, no acute events, denied chest pain, shortness shortness for breath, nausea, no vomiting, no abdominal discomfort, getting IV antibiotics during my visit. REVIEW OF SYSTEMS CONSTITUTIONAL: Denies fevers, chills, or night sweats. No unintentional weight loss reported. NEUROLOGICAL: Denies headache, amaurosis fugax, motor weakness, sensory deficit, vertigo/spinning sensation, gait abnormalities, or tremors. ENT: No hearing loss, otalgia, otorrhea, rhinitis, rhinorrhea, hoarseness, or sore throat. CARDIOVASCULAR: Denies any exertional angina, dyspnea on exertion, orthopnea, paroxysmal nocturnal dyspnea, palpitations, life-threatening arrhythmias, jamel ication. PULMONARY: Denies any shortness of breath, cough, phlegm/sputum, hemoptysis, pleuritic chest pain. SLEEP: Denies morning headaches, daytime somnolence or napping. Denies difficulty falling asleep, staying asleep, waking from sleep. Denies knowledge of snoring. GASTROINTESTINAL: Denies any type of dysphagia to either liquids or solids. Denies nausea, vomiting, pyrosis, early satiety, abdominal pain, diarrhea, constipation, or changes in stool consistency or caliber. Denies coffee-ground emesis, hematemesis, hematochezia, or melanotic stools. GENITOURINARY: Complain of right flank pain Denies frequency, urgency, nocturia, hematuria or incontinence (Storage/Irritative symptoms.) Low urinary stream, straining to void, urinary intermittency or hesitancy, splitting of the voiding stream, terminal dribbling. ENDOCRINOLOGIC: Denies polyuria, polydipsia, polyphagia or heat/cold intolerances. HEMATOLOGIC: Denies thrombophilia/previous clots, or coagulopathy/bleeding diso rders. ONCOLOGIC: Denies personal history of malignancy. DERMATOLOGIC: Denies rashes or pruritus. PSYCHIATRIC: Denies any suicidal or homicidal ideation. Denies hallucinations. PHYSICAL EXAM GENERAL APPEARANCE: The patient is awake, alert, and oriented, in no acute cardiopulmonary distress. NEUROLOGICAL: Cranial nerves II-XII grossly intact. Motor is 5/5 in bilateral upper and lower extremities proximal to distal. No sensory deficits. HEENT: Face is symmetric. Pupils are equal and reactive. Extraocular movements are intact. NECK: Supple. No JVD. No thyromegaly. No submental, submandibular, pre- /postauricular, occipital or supraclavicular lymphadenopathy. CHEST: Normal chest expansion. No Telemetry. LUNGS: Absence of any rales, rhonchi or any wheezing. CARDIOVASCULAR: Regular. S1 and S2 normal. No appreciable rubs, murmurs or gallops. ABDOMEN: Soft, nontender, and nondistended. There is no rebound, voluntary guarding, or rigidity. : Deferred. Patient has right nephrostomy tube that is not draining. Patient also has right percutaneous drain for abscess EXTREMITIES: Non-edematous and not cyanotic. No clubbing. Good capillary refill. SKIN: No skin breakdown. Vital Signs (last 8hr) Date Time Temp Pulse Resp B/P (MAP) Pulse Ox O2 Delivery O2 Flow Rate FiO2 12/03/24 08:19 98.1 68 18 102/64 98 12/03/24 08:00 98 Room Air* 0 21 12/03/24 03:52 98.1 72 20 100/58 99 Room Air LABS: Laboratory: Test 12/03/24 05:35 12/02/24 04:24 Range/Units White Blood Count 7.9 4.8-10.8 K/uL Red Blood Count 4.36 4.00-5.50 MIL/uL Hemoglobin 10.9 L 12.0-16.0 g/dL Hematocrit 34.9 L 36-48 % Mean Corpuscular Volume 80.0 79-99 fL Mean Corpuscular Hemoglobin 25.0 L 27.0-33.0 pg Mean Corpuscular Hemoglobin Concent 31.2 L 32.0-36.0 g/dL Red Cell Distribution Width 11.0-15.5 % Platelet Count 262 130-400 K/uL Mean Platelet Volume 9.0 7.5-10.5 fL Nucleated Red Blood Cells 0.0 0.0-0.19 % Sodium Level 135 L 136-145 mmol/L Potassium Level 3.6 3.5-5.1 mmol/L Chloride Level 102 101-111 mmol/L Carbon Dioxide Level 30 21-32 mmol/L Blood Urea Nitrogen 9 7-18 mg/dL Creatinine 0.8 0.5-1.0 mg/dL Glomerular Filtration Rate Calc 97 >90 mL/min Random Glucose 84 70-105 mg/dL Total Calcium 8.4 L 8.5-10.1 mg/dL Magnesium Level 2.10 1.80-2.40 mg/dL Total Bilirubin 0.1 L 0.2-1.0 mg/dL Aspartate Amino Transf (AST/SGOT) 21 10-37 U/L Alanine Aminotransferase (ALT/SGPT) 16 12-78 U/L Alkaline Phosphatase 131 50-136 U/L Total Protein 8.6 H 6.0-8.3 g/dL Albumin 2.5 L 3.5-5.0 g/dL Serum Test, Qualitative NEGATIVE NEGATIVE Current Medications Medications (Trade) Dose Ordered Sig/Karen Route PRN Reason Start Time Stop Time Status Last Admin Dose Admin Acetaminophen (TYLenol 325MG TAB) 650 mg Q4H PRN PO MILD PAIN (1-3) 11/28/24 22:30 12/28/24 22:29 Acetaminophen (TYLenol 325MG TAB) 650 mg Q6H PRN PO TEMPERATURE GREATER THAN 101.5 11/28/24 22:30 12/28/24 22:29 Acetaminophen/ Hydrocodone Bitart (NORco 5/325MG) 1 tab Q4H PRN PO MODERATE PAIN (4-6) 11/28/24 22:30 12/03/24 22:29 11/30/24 20:31 1 TAB Acetaminophen/ Hydrocodone Bitart (NORco 5/325MG) 2 tab Q4H PRN PO SEVERE PAIN (7-10) 11/28/24 22:30 12/03/24 22:29 12/03/24 01:51 2 TAB Ceftriaxone Sodium (ROCEphine 1G INJ) 1 gm BID IV 11/29/24 09:00 12/09/24 08:59 12/02/24 20:28 1 GM Famotidine (Pepcid 20mg Vial) 20 mg BID IV 11/29/24 09:00 12/29/24 08:59 12/02/24 20:28 20 MG Ondansetron HCl (zoFRAN 4MG INJ) 4 mg Q6H PRN IV NAUSEA/VOMITING 11/28/24 22:30 12/28/24 22:29 Sodium Chloride 1,000 ml @ 75 mls/hr [id number] IV 11/28/24 22:30 12/28/24 22:29 12/02/24 22:14 75 MLS/HR DIAGNOSTICS / RADIOLOGY: [ ] ASSESSMENT: Intractable right flank pain POA Complicated urinary tract infection POA Urinary bladder calculus per CT POA Chronic right kidney hydronephrosis per CT POA Nonfunctioning right kidney Recent right percutaneous drain for abscess POA Recent right [place]omy tube [place] [facility] [place]on[place] POA Protein calorie malnutrition POA History of kidney stone POA PLAN: The patient remains admitted to the medical floor Continue supportive care with IV fluids, pain medication as well as broad- spectrum IV antibiotics, continue to follow results of septic workup. Urology input noted and appreciated, results of renal scan no evidence of renal/ureteral obstruction, nonfunctioning right kidney. Continue to follow urology input and recommendation in terms of removal of stent as well as nephrectomy. NEURO: Minimize central acting medications as possible. Fall Precautions. Well lighted room through the day and minimize interruptions through the night to prevent acute delirium. PULMONARY: Supplemental 02 as needed BiPAP as necessary, for respiratory distress Titrate Fio2 to keep Spo2 > or = 90% DuoNebs and CPT as needed IS hourly while awake for pulmonary hygiene prn Out of bed to chair as tolerated Maintain aspiration precautions at all times CARDIOVASCULAR: Follow hemodynamics. Vital signs per facility protocol GI & NUTRITION: Continue nutritional support Aspirations precautions Prokinetic agents and laxatives as needed KIDNEYS & ELECTROLYTES: Strict monitoring of intake and output Daily weights Avoid nephrotoxic agents Monitor electrolytes and replace as needed Goal urine output of 30mL/hr or 0.5mL/kg/hr Medications to be dosed according to renal function. Avoid contrast if possible ENDOCRINE: Maintain blood glucose between 100-180 at all times. Insulin sliding scale for blood glucose management Hypoglycemia and hyperglycemia protocol in place INFECTIOUS DISEASE: Trend temperature, WBC and procalcitonin level Follow cultures, deescalate antibiotics as soon as possible. Panculture if new onset fever HEMATOLOGY & COAGULATION: Monitor H&H. Keep Hgb > 7 Transfuse 1 unit of PRBC for Hgb < 7 Transfuse 1 pack of platelets of platelets < 20, 000 Watch for any signs and symptoms of bleeding SKIN: Pressure ulcer prevention per facility protocol Specialty mattress as needed ORTHO/REHAB Continue PT/OT PRN: MEDICATIONS Tylenol 650 mg po every 4 hrs for fever zofran 4 mg IV every 6 hrs for n/v Hydralazine 5 mg IV every 4 hrs systolic pressure > 160 bowel regiment: lactulose 20 gm PO BID PRN constipation Supportive measures: Continue GI and DVT prophylaxis Disposition: Pending improvement in clinical condition All questions answered time spent: > 35 min Case discussed with attending physician and came up with above treatment and plan of care. RICARDO YOUNG MD Dec 03, 2024 09:30
[2024-12-04] VITALS (26 sets, daily range): BP systolic 100–151; BP diastolic 63–93; PULSE 67–96; RESP 12–20; TEMP 97.8–98.5; O2SAT 96–99
--- NOTE | 2024-12-04 14:26 | PN ---
[facility] PROGRESS NOTE Date of Service: Dec 04, 2024 Time of Service: 14:24 SUBJECTIVE: This is a 39-year-old female with significant history of kidney stone (with a right nephrostomy tube placed on October 26 2024t [facility] and right percutaneous drain placed on 11/08/2024 in this facility by IR) who presented to the ED for complaints of intractable right flank pain. CT abdomen and pelvis with contrast result revealed left kidney is unremarkable. Right kidney shows chronic hydronephrosis with an internal double-J catheter in place as well as right renal collecting system calculus. The hydronephrosis appears chronic with perirenal stranding and significant loss of renal cortical thickness as well as severe decrease in renal excretion of contrast material. Urinary bladder calculus. During my visit the patient is comfortable, sitting in the chair, alert oriented x3, hemodynamically stable, getting IV fluids and IV antibiotics. 11/30 patient is seen and examined at bedside, case discussed with the RN, no acute events overnight, patient comfortably in bed during my visit, alert oriented x3, hemodynamically stable, afebrile, saturating normal on room air. Back in the room from having renal scan. 12/01 patient is seen and examined at bedside, case discussed with the RN, no acute events overnight, results of renal scan reviewed, discussed with the patient, urology input noted and appreciated. Currently the patient getting IV antibiotics, good pain control with current medical management. 12/02 patient is seen and examined at bedside, no acute events, denied chest pain, shortness shortness for breath, nausea, no vomiting, no abdominal discomfort, getting IV antibiotics during my visit. 12/03 patient is seen and examined at bedside, no acute events, denied chest pain, shortness shortness for breath, nausea, no vomiting, no abdominal discomfort, getting IV antibiotics during my visit. 12/04 patient is seen and examined at bedside, no acute events overnight, case discussed with the RN, currently NPO, awaiting to be taken to the operating room for removal of large bladder stone maybe removal of the nephrostomy tube in the right side. Eventually patient may need right radical nephrectomy. REVIEW OF SYSTEMS CONSTITUTIONAL: Denies fevers, chills, or night sweats. No unintentional weight loss reported. NEUROLOGICAL: Denies headache, amaurosis fugax, motor weakness, sensory deficit, vertigo/spinning sensation, gait abnormalities, or tremors. ENT: No hearing loss, otalgia, otorrhea, rhinitis, rhinorrhea, hoarseness, or sore throat. CARDIOVASCULAR: Denies any exertional angina, dyspnea on exertion, orthopnea, paroxysmal nocturnal dyspnea, palpitations, life-threatening arrhythmias, claudication. PULMONARY: Denies any shortness of breath, cough, phlegm/sputum, hemoptysis, pleuritic chest pain. SLEEP: Denies morning headaches, daytime somnolence or napping. Denies difficulty falling asleep, staying asleep, waking from sleep. Denies knowledge of snoring. GASTROINTESTINAL: Denies any type of dysphagia to either liquids or solids. Denies nausea, vomiting, pyrosis, early satiety, abdominal pain, diarrhea, constipation, or changes in stool consistency or caliber. Denies coffee-ground emesis, hematemesis, hematochezia, or melanotic stools. GENITOURINARY: Complain of right flank pain Denies frequency, urgency, nocturia, hematuria or incontinence (Storage/Irritative symptoms.) Low urinary stream, straining to void, urinary intermittency or hesitancy, splitting of the voiding stream, terminal dribbling. ENDOCRINOLOGIC: Denies polyuria, polydipsia, polyphagia or heat/cold intolerances. HEMATOLOGIC: Denies thrombophilia/previous clots, or coagulopathy/bleeding disorders. ONCOLOGIC: Denies personal history of malignancy. DERMATOLOGIC: Denies rashes or pruritus. PSYCHIATRIC: Denies any suicidal or homicidal ideation. Denies hallucinations. PHYSICAL EXAM GENERAL APPEARANCE: The patient is awake, alert, and oriented, in no acute cardiopulmonary distress. NEUROLOGICAL: Cranial nerves II-XII grossly intact. Motor is 5/5 in bilateral upper and lower extremities proximal to distal. No sensory deficits. HEENT: Face is symmetric. Pupils are equal and reactive. Extraocular movements are intact. NECK: Supple. No JVD. No thyromegaly. No submental, submandibular, pre- /postauricular, occipital or supraclavicular lymphadenopathy. CHEST: Normal chest expansion. No Telemetry. LUNGS: Absence of any rales, rhonchi or any wheezing. CARDIOVASCULAR: Regular. S1 and S2 normal. No appreciable rubs, murmurs or gallops. ABDOMEN: Soft, nontender, and nondistended. There is no rebound, voluntary guarding, or rigidity. : Deferred. Patient has right nephrostomy tube that is not draining. Patient also has right percutaneous drain for abscess EXTREMITIES: Non-edematous and not cyanotic. No clubbing. Good capillary refill. SKIN: No skin breakdown. Vital Signs (last 8hr) Date Time Temp Pulse Resp B/P (MAP) Pulse Ox O2 Delivery O2 Flow Rate FiO2 12/04/24 12:00 98.1 79 18 113/82 98 Room Air 21 12/04/24 08:00 98.1 73 16 113/68 99 Room Air 21 12/04/24 08:00 99 Room Air* 0 21 LABS: Laboratory: Test 12/03/24 05:35 Range/Units White Blood Count 7.9 4.8-10.8 K/uL Red Blood Count 4.36 4.00-5.50 MIL/uL Hemoglobin 10.9 L 12.0-16.0 g/dL Hematocrit 34.9 L 36-48 % Mean Corpuscular Volume 80.0 79-99 fL Mean Corpuscular Hemoglobin 25.0 L 27.0-33.0 pg Mean Corpuscular Hemoglobin Concent 31.2 L 32.0-36.0 g/dL Red Cell Distribution Width 11.0-15.5 % Platelet Count 262 130-400 K/uL Mean Platelet Volume 9.0 7.5-10.5 fL Nucleated Red Blood Cells 0.0 0.0-0.19 % Sodium Level 135 L 136-145 mmol/L Potassium Level 3.6 3.5-5.1 mmol/L Chloride Level 102 101-111 mmol/L Carbon Dioxide Level 30 21-32 mmol/L Blood Urea Nitrogen 9 7-18 mg/dL Creatinine 0.8 0.5-1.0 mg/dL Glomerular Filtration Rate Calc 97 >90 mL/min Random Glucose 84 70-105 mg/dL Total Calcium 8.4 L 8.5-10.1 mg/dL Magnesium Level 2.10 1.80-2.40 mg/dL Total Bilirubin 0.1 L 0.2-1.0 mg/dL Aspartate Amino Transf (AST/SGOT) 21 10-37 U/L Alanine Aminotransferase (ALT/SGPT) 16 12-78 U/L Alkaline Phosphatase 131 50-136 U/L Total Protein 8.6 H 6.0-8.3 g/dL Albumin 2.5 L 3.5-5.0 g/dL Current Medications Medications (Trade) Dose Ordered Sig/Karen Route PRN Reason Start Time Stop Time Status Last Admin Dose Admin Acetaminophen (TYLenol 325MG TAB) 650 mg Q4H PRN PO MILD PAIN (1-3) 11/28/24 22:30 12/28/24 22:29 Acetaminophen (TYLenol 325MG TAB) 650 mg Q6H PRN PO TEMPERATURE GREATER THAN 101.5 11/28/24 22:30 12/28/24 22:29 Acetaminophen/ Hydrocodone Bitart (NORco 5/325MG) 1 tab Q4H PRN PO MODERATE PAIN (4-6) 11/28/24 22:30 12/03/24 22:29 DC 11/30/24 20:31 1 TAB Acetaminophen/ Hydrocodone Bitart (NORco 5/325MG) 2 tab Q4H PRN PO SEVERE PAIN (7-10) 11/28/24 22:30 12/03/24 22:29 DC 12/03/24 01:51 2 TAB Ceftriaxone Sodium (ROCEphine 1G INJ) 1 gm BID IV 11/29/24 09:00 12/09/24 08:59 12/04/24 09:17 1 GM Famotidine (Pepcid 20mg Vial) 20 mg BID IV 11/29/24 09:00 12/29/24 08:59 12/04/24 09:17 20 MG Ondansetron HCl (zoFRAN 4MG INJ) 4 mg Q6H PRN IV NAUSEA/VOMITING 11/28/24 22:30 12/28/24 22:29 Sodium Chloride 1,000 ml @ 75 mls/hr [id number] IV 11/28/24 22:30 12/28/24 22:29 12/02/24 22:14 75 MLS/HR DIAGNOSTICS / RADIOLOGY: [ ] ASSESSMENT: Intractable right flank pain POA Complicated urinary tract infection POA Urinary bladder calculus per CT POA Chronic right kidney hydronephrosis per CT POA Nonfunctioning right kidney Recent right percutaneous drain for abscess POA Recent right nephrostomy tube placement on October 26 [place] Mild hyponatremia POA Protein calorie malnutrition POA History of kidney stone POA PLAN: The patient remains admitted to the medical floor Continue supportive care with IV fluids, pain medication as well as broad- spectrum IV antibiotics, continue to follow results of septic workup. NPO, awaiting to be taken to the operating room for removal of large bladder stone maybe removal of the nephrostomy tube in the right side. Eventually patient may need right radical nephrectomy. NEURO: Minimize central acting medications as possible. Fall Precautions. Well lighted room through the day and minimize interruptions through the night to prevent acute delirium. PULMONARY: Supplemental 02 as needed BiPAP as necessary, for respiratory distress Titrate Fio2 to keep Spo2 > or = 90% DuoNebs and CPT as needed IS hourly while awake for pulmonary hygiene prn Out of bed to chair as tolerated Maintain aspiration precautions at all times CARDIOVASCULAR: Follow hemodynamics. Vital signs per facility protocol GI & NUTRITION: Continue nutritional support Aspirations precautions Prokinetic agents and laxatives as needed KIDNEYS & ELECTROLYTES: Strict monitoring of intake and output Daily weights Avoid nephrotoxic agents Monitor electrolytes and replace as needed Goal urine output of 30mL/hr or 0.5mL/kg/hr Medications to be dosed according to renal function. Avoid contrast if possible ENDOCRINE: Maintain blood glucose between 100-180 at all times. Insulin sliding scale for blood glucose management Hypoglycemia and hyperglycemia protocol in place INFECTIOUS DISEASE: Trend temperature, WBC and procalcitonin level Follow cultures, deescalate antibiotics as soon as possible. Panculture if new onset fever HEMATOLOGY & COAGULATION: Monitor H&H. Keep Hgb > 7 Transfuse 1 unit of PRBC for Hgb < 7 Transfuse 1 pack of platelets of platelets < 20, 000 Watch for any signs and symptoms of bleeding SKIN: Pressure ulcer prevention per facility protocol Specialty mattress as needed ORTHO/REHAB Continue PT/OT PRN: MEDICATIONS Tylenol 650 mg po every 4 hrs for fever zofran 4 mg IV every 6 hrs for n/v Hydralazine 5 mg IV every 4 hrs systolic pressure > 160 bowel regiment: lactulose 20 gm PO BID PRN constipation Supportive measures: Continue GI and DVT prophylaxis Disposition: Pending improvement in clinical condition All questions answered time spent: > 35 min Case discussed with attending physician and came up with above treatment and plan of care. RICARDO YOUNG MD Dec 04, 2024 14:26
[2024-12-04] MEDS ORDERED: IOHEXOL-350 50ML VIAL IV ONE (16:17)
[2024-12-04] MEDS ORDERED: LIDOCAINE PF 100MG/5ML (2%) SYRINGE 5ML ONE (17:07)
[2024-12-04] MEDS ORDERED: proPOFol 10 MG/ML 20ML VIAL IV ONE (17:08)
[2024-12-04] MEDS ORDERED: MIDAZOLAM HCL 1 MG/ML 2ML VIAL ONE (17:08)
[2024-12-04] MEDS ORDERED: FENTanyl CITRate PF 50 MCG/1 ML 2ML VIAL ONE ×2 (17:08→18:11)
[2024-12-04] MEDS ORDERED: rocuRONium bROMide 10MG/1ML 5ML VL ONE ×2 (17:09→18:12)
[2024-12-04] MEDS ORDERED: dexaMETHasone SOD PHOSPHATE 10MG/ML 1ML VIAL ONE (17:13)
[2024-12-04] MEDS ORDERED: ondanSETRON 4MG INJ ONE (17:13)
[2024-12-04] MEDS: ceFAZolin SODIUM 2 GM VIAL IVPB ONE (17:30)
[2024-12-04] MEDS: MEPERIDINE-PF 100 MG/ML SYG ONE (19:57)
--- NOTE | 2024-12-04 19:57 | HMCIMG ---
PROCEDURE FILMS UROGRAPHY RETROGRADE CLINICAL INFORMATION: RT renal calculus. Multiple spot views of the right renal collecting system and ureter were performed for procedure documentation during pathology stent placement. FLUORO TIME: 1.6 minutes IMPRESSION: Intraoperative films documenting procedure as above
--- NOTE | 2024-12-04 20:03 | OP ---
Operative Note: DATE OF PROCEDURE: 12/04/24 SURGEON: BRENNAN BRAY MD [employer] SUPERVISOR: Operating room staff ANESTHESIA: General anesthesia ANESTHESIOLOGIST/MAIL CLERKS SUPERVISOR: Anesthesia staff PREOPERATIVE DIAGNOSIS: 1. Right retained right ureteral stent 2. Large bladder stone 3. XGP of the right kidney 4. Right nephrostomy tube POSTOPERATIVE DIAGNOSIS: 1. Retained right ureteral stent 2. Large bladder stone 3. XGP of right kidney 4. Right nephrostomy tube SYNOPSIS: Successful removal of the retained right ureteral stent with placement of a new stent, removal of a large bladder stone via cystolithotomy PROCEDURE: 1. 26831 Cystolithotomy 2. 09634 Cystourethroscopy with insertion of a right ureteral stent 3. 01065 Removal of right nephrostomy tube using fluoroscopic guidance 4. 80384 Right retrograde pyelogram with interpretation ESTIMATED BLOOD LOSS: Minimal INDICATIONS: This is a pleasant 39-year-old female with a retained right ureteral stent for the last two years that was placed for management of right renal pelvis calculus. Her urologist did not remove the stent. Patient states she had been to multiple hospital visits the stent was never removed. She sought care with us. CT scan recently did show a perirenal abscess which has a drain in it and there was a right nephrostomy tube as well. Encrusted stent was visible. There was a large bladder stone. Patient presents today for treatment. DESCRIPTION OF PROCEDURE: Patient identified in the holding area, consent verified. Patient received Ancef prophylaxis and taken to the operating suite. She was placed in the supine position, after induction she underwent general anesthesia and repositioned in low lithotomy. Her genitalia was prepped she was draped in a time-out was performed. We introduced a rigid 20 Chilean cystoscope through meatus which was patent. Jordan cystourethroscopy was performed centered fashion. Large bladder stone identified. Indwelling right ureteral stent was identified. It has some encrustations. The encrustations were broken up the bladder. It was grabbed and removed and tucked slowly. It gave and the came out. We obtain a retrograde pyelogram and passed a wire and place a seven Chilean by24 cm double-J stent. At this point we started with the cystolithotripsy part of the case. We used a 900 micron laser filament. After disintegrating the stone for a good while of about an hour the stone was not breaking out because the central part was made up of mucus. At this point we decided to convert to cystolithotomy. We made a Pfannenstiel incision through her previous section incision using and a 10 blade. Was taken down through subcutaneous tissue using electrocautery. Rectus abdominis fascia was identified and and opened using electrocautery several cm wide. It was from the belly of the rectus muscles. The rectus muscle was spread apart. We infused the bladder with several cc of saline. Langley catheter was clamped. We made a cystotomy. Once we entered the bladder were able to grab the stone and removing as the entirety. This was followed by bladder being closed in several layers using a 2-0 Vicryl stitch. It was tested deemed to be watertight. This was followed by closure of the rectus fascia using a PDS stitch and then the skin was stapled together. There were no complications. Langley catheter was left draining the bladder. BRENNAN BRAY MD Dec 04, 2024 20:03
--- NOTE | 2024-12-04 21:23 | NUR ---
NOTE MICHAEL CUBA ANIMATION ARTIST MAKING ROUNDS MADE AWARE PT POST OP SURGERY C/O PAIN ONLY HAS ACETAMINOPHEN, N/O ONE TIME DOSE TORADOL 15MG IV.
[2024-12-04] MEDS: ketOROlac 15MG/ML VIAL (15MG/ML) IV ONE (21:35)
[2024-12-05] VITALS (7 sets, daily range): BP systolic 98–118; BP diastolic 59–73; PULSE 62–70; RESP 16–20; TEMP 98.4–98.7; O2SAT 93–96
[2024-12-05 06:03] LABS: HEMATOCRIT 34.7 % (36-48); MEAN CORPUSCULAR HEMOGLOBIN 24.8 pg (27.0-33.0); MEAN CORPUSCULAR HGB CONC 30.8 g/dL (32.0-36.0); MEAN CORPUSCULAR VOLUME 80.5 fL (79-99); PLATELET COUNT (AUTO) 245 K/uL (130-400); RED BLOOD CELL COUNT(AUTO) 4.31 MIL/uL (4.00-5.50); WHITE BLOOD COUNT (AUTO) 12.2 K/uL (4.8-10.8)
[2024-12-05 06:22] LABS: ALBUMIN 2.4 g/dL (3.5-5.0); BILIRUBIN,TOTAL 0.2 mg/dL (0.2-1.0); CREATININE 0.7 mg/dL (0.5-1.0); MAGNESIUM 1.8 mg/dL (1.80-2.40); POTASSIUM 4.5 mmol/L (3.5-5.1); TOTAL PROTEIN, SERUM 8.3 g/dL (6.0-8.3)
--- NOTE | 2024-12-05 06:45 | NUR ---
NOTE (PAIN) PAGED HOSPITALIST HELICOPTER OFFICER PENDING CALL BACK FROM ANGELY DIAZ.
[2024-12-05] MEDS: HYDROcodone/acetaMINOPHEN 10/325 MG TAB PO PRN (10:42)
--- NOTE | 2024-12-05 15:43 | PN ---
[facility] PROGRESS NOTE Date of Service: Dec 05, 2024 Time of Service: 15:36 SUBJECTIVE: This is a 39-year-old female with significant history of kidney stone (with a right nephrostomy tube placed on October 26 2024t [facility] and right percutaneous drain placed on 11/08/2024 in this facility by IR) who presented to the ED for complaints of intractable right flank pain. CT abdomen and pelvis with contrast result revealed left kidney is unremarkable. Right kidney shows chronic hydronephrosis with an internal double-J catheter in place as well as right renal collecting system calculus. The hydronephrosis appears chronic with perirenal stranding and significant loss of renal cortical thickness as well as severe decrease in renal excretion of contrast material. Urinary bladder calculus. During my visit the patient is comfortable, sitting in the chair, alert oriented x3, hemodynamically stable, getting IV fluids and IV antibiotics. 11/30 patient is seen and examined at bedside, case discussed with the RN, no acute events overnight, patient comfortably in bed during my visit, alert oriented x3, hemodynamically stable, afebrile, saturating normal on room air. Back in the room from having renal scan. 12/01 patient is seen and examined at bedside, case discussed with the RN, no acute events overnight, results of renal scan reviewed, discussed with the patient, urology input noted and appreciated. Currently the patient getting IV antibiotics, good pain control with current medical management. 12/02 patient is seen and examined at bedside, no acute events, denied chest pain, shortness shortness for breath, nausea, no vomiting, no abdominal discomfort, getting IV antibiotics during my visit. 12/03 patient is seen and examined at bedside, no acute events, denied chest pain, shortness shortness for breath, nausea, no vomiting, no abdominal discomfort, getting IV antibiotics during my visit. 12/04 patient is seen and examined at bedside, no acute events overnight, case discussed with the RN, currently NPO, awaiting to be taken to the operating room for removal of large bladder stone maybe removal of the nephrostomy tube in the right side. Eventually patient may need right radical nephrectomy. 12/05 Pt seen at bedside, no acute events overnight. Is s/p removal of bladder stone, right nephrostomy tube removal, right retrograde pyelogram. Burton was left in place with blood tinged urine noted in the burton at bedside. Pt has no complaints, will continue with current management until cleared by urology for discharge. REVIEW OF SYSTEMS CONSTITUTIONAL: Denies fevers, chills, or night sweats. No unintentional weight loss reported. NEUROLOGICAL: Denies headache, amaurosis fugax, motor weakness, sensory deficit, vertigo/spinning sensation, gait abnormalities, or tremors. ENT: No hearing loss, otalgia, otorrhea, rhinitis, rhinorrhea, hoarseness, or sore throat. CARDIOVASCULAR: Denies any exertional angina, dyspnea on exertion, orthopnea, paroxysmal nocturnal dyspnea, palpitations, life-threatening arrhythmias, claudication. PULMONARY: Denies any shortness of breath, cough, phlegm/sputum, hemoptysis, pleuritic chest pain. SLEEP: Denies morning headaches, daytime somnolence or napping. Denies d ifficulty falling asleep, staying asleep, waking from sleep. Denies knowledge of snoring. GASTROINTESTINAL: Denies any type of dysphagia to either liquids or solids. Denies nausea, vomiting, pyrosis, early satiety, abdominal pain, diarrhea, constipation, or changes in stool consistency or caliber. Denies coffee-ground emesis, hematemesis, hematochezia, or melanotic stools. GENITOURINARY: Complain of right flank pain Denies frequency, urgency, nocturia, hematuria or incontinence (Storage/Irritative symptoms.) Low urinary stream, straining to void, urinary intermittency or hesitancy, splitting of the voiding stream, terminal dribbling. ENDOCRINOLOGIC: Denies polyuria, polydipsia, polyphagia or heat/cold intolerances. HEMATOLOGIC: Denies thrombophilia/previous clots, or coagulopathy/bleeding disorders. ONCOLOGIC: Denies personal history of malignancy. DERMATOLOGIC: Denies rashes or pruritus. PSYCHIATRIC: Denies any suicidal or homicidal ideation. Denies hallucinations. PHYSICAL EXAM GENERAL APPEARANCE: The patient is awake, alert, and oriented, in no acute cardiopulmonary distress. NEUROLOGICAL: Cranial nerves II-XII grossly intact. Motor is 5/5 in bilateral upper and lower extremities proximal to distal. No sensory deficits. HEENT: Face is symmetric. Pupils are equal and reactive. Extraocular movements are intact. NECK: Supple. No JVD. No thyromegaly. No submental, submandibular, pre-/postauricular, occipital or supraclavicular lymphadenopathy. CHEST: Normal chest expansion. No Telemetry. LUNGS: Absence of any rales, rhonchi or any wheezing. CARDIOVASCULAR: Regular. S1 and S2 normal. No appreciable rubs, murmurs or gallops. ABDOMEN: Soft, nontender, and nondistended. There is no rebound, voluntary guarding, or rigidity. : Deferred. Patient has right nephrostomy tube that is not draining. Patient also has right percutaneous drain for abscess EXTREMITIES: Non-edematous and not cyanotic. No clubbing. Good capillary refill. SKIN: No skin breakdown. Vital Signs (last 8hr) Date Time Temp Pulse Resp B/P (MAP) Pulse Ox O2 Delivery O2 Flow Rate FiO2 12/05/24 12:00 98.4 63 18 117/68 96 Room Air 12/05/24 08:00 98.4 62 18 107/69 98 Room Air 12/05/24 08:00 96 Room Air* 0 21 LABS: Laboratory: Test 12/05/24 05:49 Range/Units White Blood Count 12.2 H 4.8-10.8 K/uL Red Blood Count 4.31 4.00-5.50 MIL/uL Hemoglobin 10.7 L 12.0-16.0 g/dL Hematocrit 34.7 L 36-48 % Mean Corpuscular Volume 80.5 79-99 fL Mean Corpuscular Hemoglobin 24.8 L 27.0-33.0 pg Mean Corpuscular Hemoglobin Concent 30.8 L 32.0-36.0 g/dL Red Cell Distribution Width 11.0-15.5 % Platelet Count 245 130-400 K/uL Mean Platelet Volume 8.7 7.5-10.5 fL Nucleated Red Blood Cells 0.0 0.0-0.19 % Red Blood Cell Morphology See comments Sodium Level 136 136-145 mmol/L Potassium Level 4.5 3.5-5.1 mmol/L Chloride Level 105 101-111 mmol/L Carbon Dioxide Level 25 21-32 mmol/L Blood Urea Nitrogen 10 7-18 mg/dL Creatinine 0.7 0.5-1.0 mg/dL Glomerular Filtration Rate Calc 113 >90 mL/min Random Glucose 115 H 70-105 mg/dL Total Calcium 8.3 L 8.5-10.1 mg/dL Magnesium Level 1.80 1.80-2.40 mg/dL Total Bilirubin 0.2 0.2-1.0 mg/dL Aspartate Amino Transf (AST/SGOT) 23 10-37 U/L Alanine Aminotransferase (ALT/SGPT) 17 12-78 U/L Alkaline Phosphatase 123 50-136 U/L Total Protein 8.3 6.0-8.3 g/dL Albumin 2.4 L 3.5-5.0 g/dL Current Medications Medications (Trade) Dose Ordered Sig/Karen Route PRN Reason Start Time Stop Time Status Last Admin Dose Admin Acetaminophen (TYLenol 325MG TAB) 650 mg Q4H PRN PO MILD PAIN (1-3) 11/28/24 22:30 12/28/24 22:29 Acetaminophen (TYLenol 325MG TAB) 650 mg Q6H PRN PO TEMPERATURE GREATER THAN 101.5 11/28/24 22:30 12/28/24 22:29 Acetaminophen/ Hydrocodone Bitart (NORco 10) 1 tab Q6H PRN PO SEVRE PAIN (7-10) 12/05/24 11:00 12/12/24 10:59 12/05/24 10:42 1 TAB Acetaminophen/ Hydrocodone Bitart (NORco 5/325MG) 1 tab Q4H PRN PO MODERATE PAIN (4-6) 11/28/24 22:30 12/03/24 22:29 DC 11/30/24 20:31 1 TAB Acetaminophen/ Hydrocodone Bitart (NORco 5/325MG) 1 tab Q6H PRN PO MODERATE PAIN (4-6) 12/05/24 11:00 12/10/24 10:59 Acetaminophen/ Hydrocodone Bitart (NORco 5/325MG) 2 tab Q4H PRN PO SEVERE PAIN (7-10) 11/28/24 22:30 12/03/24 22:29 DC 12/03/24 01:51 2 TAB Ceftriaxone Sodium (ROCEphine 1G INJ) 1 gm BID IV 11/29/24 09:00 12/09/24 08:59 12/05/24 08:15 1 GM Famotidine (Pepcid 20mg Vial) 20 mg BID IV 11/29/24 09:00 12/29/24 08:59 12/05/24 08:16 20 MG Ondansetron HCl (zoFRAN 4MG INJ) 4 mg Q6H PRN IV NAUSEA/VOMITING 11/28/24 22:30 12/28/24 22:29 Sodium Chloride 1,000 ml @ 75 mls/hr [id number] IV 11/28/24 22:30 12/28/24 22:29 12/05/24 15:23 75 MLS/HR DIAGNOSTICS / RADIOLOGY: [ ] ASSESSMENT: s/p cystolithotomy, removal of right nephrostomy tube, placement of right ureteral stent (12/04/24) Intractable right flank pain, resolved POA Complicated urinary tract infection, aseptic, ruled out POA Urinary bladder calculus per CT POA Chronic right kidney hydronephrosis per CT POA Recent right percutaneous drain for abscess POA Recent right neph[place]omy tube [place] [facility] [place]on[place] POA Protein calorie malnutrition POA History of kidney stone POA PLAN: The patient remains admitted to the medical floor Continue supportive care with IV fluids, pain medication as well as broad- spectrum IV antibiotics, continue to follow results of septic workup. Continue burton catheter Urology consulted, appreciate recommendations Disposition: Pending post-op course TRISHA RUDOLPH MD Dec 05, 2024 15:43
[2024-12-06] VITALS: BP 124/77; PULSE 74; RESP 16; TEMP 98.4
[2024-12-06 04:00] VITALS: BP 101/63; PULSE 64; RESP 16; TEMP 98.4
[2024-12-06 05:07] LABS: BASOPHILS # (AUTO) 0.07 K/uL (0.00-0.20); BASOPHILS % (AUTO) 0.8 % (0.0-5.0); EOSINOPHILS # (AUTO) 0.07 K/uL (0.00-0.70); EOSINOPHILS % (AUTO) 0.8 % (0.0-8.0); IMMATURE GRANULOCYTE ABSOLUTE 0.03 K/uL (0-1); LYMPHOCYTES # (AUTO) 2.9 K/uL (1.0-4.8); LYMPHOCYTES % (AUTO) 32.1 % (21.0-51.0); MEAN CORPUSCULAR HGB CONC 30.3 g/dL (32.0-36.0); MEAN CORPUSCULAR VOLUME 82.5 fL (79-99); MONOCYTES # (AUTO) 0.5 K/uL (0.1-1.0); MONOCYTES % (AUTO) 5.6 % (3.0-13.0); NEUTROPHILS # (AUTO) 5.4 K/uL (1.8-7.7); NEUTROPHILS % (AUTO) 60.4 % (40.0-77.0); PLATELET COUNT (AUTO) 239 K/uL (130-400); RED BLOOD CELL COUNT(AUTO) 4.12 MIL/uL (4.00-5.50)
[2024-12-06 05:21] LABS: CREATININE 0.7 mg/dL (0.5-1.0); MAGNESIUM 1.8 mg/dL (1.80-2.40); PHOSPHORUS 3.7 mg/dL (2.5-4.9); POTASSIUM 3.5 mmol/L (3.5-5.1)
[2024-12-06 08:00] VITALS: BP 92/56; PULSE 70; RESP 18; TEMP 97.8; O2SAT 100
[2024-12-06] MEDS: HYDROcodone/APAP 5/325 1 TAB TABLET PO PRN (08:35)
[2024-12-06 12:00] VITALS: BP_SYST 173; BP_SYST 95; BP_DIAS 60; BP_DIAS 73; PULSE 75; PULSE 95; RESP 18; TEMP 98.1; TEMP 98.6
[2024-12-06] MEDS: DEXTROSE 50%-WATER 50 ML DISP.SYRIN IV ONE (12:01)
[2024-12-06] MEDS: LACTULOSE 20 GM/30 ML UDCUP PO ONE (12:56)
[2024-12-06 16:00] VITALS: BP 111/72; PULSE 85; RESP 18; TEMP 98.4
--- NOTE | 2024-12-06 17:22 | DS ---
Discharge Summary Hospital Course Summary: 39-year-old female with significant history of kidney stone (with a right nephrost[facility] and right percutaneous drain placed on 11/08/2024 in this facility by IR) who presents to the ED for complaints of intractable right flank pain.Patient repor ts her right nephrostomy tube has not been draining at all since she was admitted here and her Urologist and rounding MD's were aware if it and she had also a percutaneous drain for abscess that was placed by Interventional Radiologist on 11/08/2024 and it has been draining 30ml per day she said and patients also states she has been voiding normally everyday she said. Patient also reports she was recently seen in the ER on November 26, 2024 for similar complaints and was sent home and advised to continue home antibiotic.Today patient came back due to severity of pain . Patient reports her last antibiotic taken was this morning she is on Augmentin 875mg bid po and she has 1 more day remaining she said. She was noted to have a urinary bladder calculus, she was a dmitted and urology was consulted. She was taken for removal of the right nephrostomy tube, cystolithotomy, cystourethroscopy with insertion of a right ureteral stent. She tolerated the procedure well and by hospital day 8 she was stable and cleared for discharge back home. Educational Aid(s): Urology Procedure(s): PROCEDURE FILMS UROGRAPHY RETROGRADE CLINICAL INFORMATION: RT renal calculus. Multiple spot views of the right renal collecting system and ureter were performed for procedure documentation during pathology stent placement. 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 Lasix renogram was performed as well, with injection of 19 .0 mg of Lasix at the 7 minute niru. Sequential posterior images were obtained and the renogram curve results were calculated. FINDINGS: Lasix renogram shows split renal function 98.2% left and 1.8% right. This is consistent with an essentially nonfunctioning right kidney. Peak time renal activity of 4 minutes on the left. (Normal is 3-5 minutes.) The T1/2 post peaktime is 9.1 minutes on the left . (Normal is 10 mins or less.) IMPRESSION: 1. No evidence of renal/ureteral obstruction. 2. Split renal function % left and % right. Essentially nonfunctioning right kidney. Exam Type: CT ABDOMEN/PELVIS W/CONTRAST Clinical Information: right upper abd pain, right flank pain s/o nephrostomy Comparison: None Contrast: 100 cc's Isovue 370 IV, no complications or adverse reactions CT Dose Index (CTDI): 31.60 mGy Dose Length Product (DLP): 1740.80 total mGy-cm Findings: Left kidney is unremarkable. The right kidney shows chronic hydronephrosis with a internal double-J catheter in place as well as right renal collecting system calculus. The hydronephrosis appears chronic with perirenal stranding and significant loss of renal cortical thickness as well as severe decrease in renal excretion of contrast material. The lung bases are clear. The stomach is unremarkable. It shows no wall thickening. No gross ulceration is seen. It is not overly distended. There are no surrounding inflammatory changes. No wall lesions are identified to suggest cancer. The spleen is unremarkable. It is not enlarged. The pancreas shows normal anatomy. It is not fatty replaced. It shows no lesions. The pancreatic duct is not dilated. The gallbladder is unremarkable. It shows no cholelithiasis. The gallbladder wall is normal in thickness. There is no pericholecystic fluid. The is no acute or chronic inflammation noted. The adrenal glands are unremarkable. There is no enlargement. No lesions are noted. The liver is unremarkable. It shows no focal masses. The appendix is unremarkable. It shows no evidence of inflammation. No appendicolith is seen. The small bowel is unremarkable. There is no evidence of dilatation to suggest obstruction. No evidence of adynamic ileus is seen. There is no small bowel wall thickening to suggest enteritis. The colon is unremarkable. Left sided urinary bladder calculus is seen, ovoid in shape, measuring 25 mm. The other pelvic structures are unremarkable. The bony and vascular structures are unremarkable for the patient's age. Anterior perirenal fluid collection is seen with drainage catheter in place. IMPRESSION: Left kidney is unremarkable. The right kidney shows chronic hydronephrosis with a internal double-J catheter in place as well as right renal collecting system calculus. The hydronephrosis appears chronic with perirenal stranding and significant loss of renal cortical thickness as well as severe decrease in renal excretion of contrast material. Urinary bladder calculus. Assessment/Plan: s/p cystolithotomy, removal of right nephrostomy tube, placement of right ureteral stent (12/04/24) Intractable right flank pain, resolved POA Complicated urinary tract infection, aseptic, ruled out POA Urinary bladder calculus per CT POA Chronic right kidney hydronephrosis per CT POA Recent right percutaneous drain for abscess POA Recent right nephrostomy tube placement on October 26t [facility] [place] Mild hyponatremia POA Protein calorie malnutrition POA History of kidney stone POA Discharge Instructions: Follow up with PCP in 3-7 days Follow up with urologist, Dr. Beckett, in 1 week for burton removal Home Medications: Active Scripts Amoxicillin/Potassium Clav (Amox Tr-K Clv 875-125 mg Tab) 875 Mg-125 Mg Tablet, 1 TAB PO BID for 14 Days, #28 TAB 0 Refills Prov:TRISHA RUDOLPH MD 11/12/24 Reported Medications Ferrous Sulfate (Ferrous Sulfate) 325 Mg (65 Mg Iron) Ectab, 1 TAB PO QODAY 11/06/24 Discontinued Reported Medications Polyethylene Glycol 3350 (Miralax) 17 Gram Powd.pack, 1 PACKET PO DAILY for constipation for 2 Days, #2 PACKET 0 Refills dissolve in water 11/06/24 Ibuprofen (Ibuprofen 800 mg Tab) 800 Mg Tab, 1 TAB PO TIDP PRN for pain 11/06/24 Continued Medications: Ferrous Sulfate (Ferrous Sulfate) 325 Mg (65 Mg Iron) Ectab 1 TAB PO QODAY Discontinued Medications: Amoxicillin/Potassium Clav (Amox Tr-K Clv 875-125 mg Tab) 875 Mg-125 Mg Tablet 1 TAB PO BID for 14 Days, #28 TAB 0 Refills Time spent arranging discharge: 31-60 minutes TRISHA RUDOLPH MD Dec 06, 2024 17:22
--- NOTE | 2024-12-06 18:25 | NUR ---
DISCHARGE PIV DC'D AND BRACELETS REMOVED. PT LEAVING FACILITY WITH GOYAL CATHETER PER DR RUDOLPH. REVIEWED DISCHARGE INSTRUCTIONS, MEDICATIONS, AND FOLLOW UP APPOINTMENTS WITH PT AND FAMILY. PT WILL BE FOLLOWING UP WITH DR BRAY FOR GOYAL REMOVAL IN 1 WEEK. GAVE PT EDUCATION ON UTI, HYDRATION, AND GOYAL CATHETER CARE. PT LEAVING FACILITY VIA WHEELCHAIR TO HOME
== END 2024-12-06 19:00 | disposition home or self-care (01) | DRG 660 ==
LOC: EDH 18:35 → EDHIP 18:36 → 3BH 23:46
PROVIDERS: ADMIT Internal Medicine; ATTEND Internal Medicine
PROC: 0TCB8ZZ Extirpation of Matter from Bladder, Via Natural or Artificial Opening Endoscopic (ICD-10-PCS; principal; 2024-12-04 17:09)
PROC: 0T768DZ Dilation of Right Ureter with Intraluminal Device, Via Natural or Artificial Opening Endoscopic (ICD-10-PCS; 2024-12-04 17:09)
PROC: 0TP5X0Z Removal of Drainage Device from Kidney, External Approach (ICD-10-PCS; 2024-12-04 17:09)
PROC: BT1D1ZZ Fluoroscopy of Right Kidney, Ureter and Bladder using Low Osmolar Contrast (ICD-10-PCS; 2024-12-04 17:09)
DX: N13.6 Pyonephrosis (principal); E46 Unspecified protein-calorie malnutrition; E87.1 Hypo-osmolality and hyponatremia; N15.1 Renal and perinephric abscess; Z87.442 Personal history of urinary calculi; Z98.891 History of uterine scar from previous surgery; Z79.899 Other long term (current) drug therapy; Z68.28 Body mass index [BMI] 28.0-28.9, adult
CPT/HCPCS: 36415; 74177; 74420; 78708; 80048; 80053; 80076; 81001; 82360; 83690; 83735; 84100; 84703; 85025; 85027; 85610; 85730; 87086; A4344; A9562; C1758; C1769; C2617; G0378; J0696; J1100; J1885; J1940; J2003; J2175; J2250; J2270; J2405; J2704; J3010; J3490; J7030; J7070; Q9967; A4358; A4930; A6213; J0690